=== PATIENT | male | born 1965 | race Caucasian/White ===

== ENCOUNTER 2019-09-15 15:44 | Emergency (ER) | payer MEDICARE, SELFPAY ==
--- NOTE | ~2019-09-15 | CT_ITS ---
EXAMINATION: CT abdomen pelvis w con EXAM DATE: 09/15/2019 17:08 INDICATION: Left upper quadrant pain. TECHNIQUE: Spiral CT of the abdomen and pelvis was performed following intravenous injection of 100 m L Omnipaque 350. Axial, coronal and sagittal images were reviewed. The dose-length product (DLP) fo r this examination was 1307.47 mGy-cm. The exposure was tailored according to patient size (auto mA exposure control), and iterative reconstruction (ASIR) was used as additional dose reduction techniqu e. Comparison is made to prior examination from 10/20/2006. FINDINGS: The liver, spleen, adrenal glands and pancreas are unremarkable. There are cholecystectomy clips. Portal and splenic veins are patent. Kidneys enhance symmetrically. There is no hydronephr osis. The prostate is unremarkable. The bladder is unremarkable. There is no retroperitoneal or p elvic lymphadenopathy. 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 There is mild to m oderate sigmoid colonic diverticulosis. There is no adjacent inflammatory change to suggest divertic ulitis. The stomach and small bowel are unremarkable. There is expected amount of colonic stool. N o free intraperitoneal gas. The heart is normal in size. There are no pericardial or pleural effus ions. The lung bases are unremarkable. There are no osteoblastic or osteolytic lesions identified. Posterior and interbody fusion L5-S1. Thoracic diffuse idiopathic skeletal hyperostosis. IMPRESSION: 1. No acute intra-abdominal findings. 2. Sigmoid predominant colonic diverticulosis. Reviewed, dictated and finalized at location A.
[2019-09-15 15:59] VITALS: BP 111/96; PULSE 70; RESP 18; TEMP 37.1; O2SAT 97
[2019-09-15 16:15] LABS: Basophils Absolute Auto 0.1 K/mm3 (0.0-0.1); Basophils Percent Auto 0.5 % (0.2-1.2); Eosinophils Absolute Auto 0.3 K/mm3 (0-0.3); Hematocrit 45.6 % (42.0-52.0); Hemoglobin 15.5 g/dL (14.0-18.0); Immature Granulocyte Absolute 0.07 K/mm3 (0.00-0.031); Immature Granulocyte Percent A 0.7 % (0-0.5); Lymphocytes Absolute Auto 2.09 K/mm3 (0.9-3.2); Lymphocytes Percent Auto 21.6 % (18.3-44.2); Mean Corpuscular Hemoglobin 30.4 pg (26-34); Mean Corpuscular Volume 89.4 fl (80-100); Mean Platelet Volume 10.5 fl (7.4-10.4); Monocytes Absolute Auto 0.8 K/mm3 (0.1-0.6); Monocytes Percent Auto 8.4 % (2.6-8.5); Neutrophils Absolute Auto 6.4 K/mm3 (1.3-6.7); Neutrophils Percent Auto 65.8 % (45.5-73.1); Platelet Count Result 206 k/mm3 (150-375); Red Cell Distribution Width 13.1 % (11.5-14.5); White Blood Count 9.7 K/mm3 (4.5-10.0)
[2019-09-15 16:38] LABS: Alanine Aminotransferase 18 U/L (4-50); Albumin Level 4.6 g/dL (3.5-5.1); Alkaline Phosphatase 75 U/L (38-126); Aspartate Amino Transferase 32 U/L (17-59); Bilirubin,Total 0.6 mg/dL (0.2-1.3); Blood Urea Nitrogen 12 mg/dL (9-20); Calcium 9.3 mg/dL (8.4-10.2); Carbon Dioxide 26 mmol/L (22-30); Chloride 103 mmol/L (98-107); Estimated CRCL calculation 83 ml/min; Estimated Glomerular Filt Rate > 60; Glucose 94 mg/dL (75-110); Lipase 331 U/L (23-300); Potassium 4.2 mmol/L (3.4-5.0); Sodium 136 mmol/L (137-145)
--- NOTE | 2019-09-15 17:43 | ED.ABDPAIN ---
HPI - Abdominal Pain General Chief Complaint: Abdominal Pain Stated Complaint: Abd pain, back pain Time Seen by Provider: 09/15/19 15:49 History of Present Illness HPI narrative: Patient is a 54-year-old male who presents ER with upper abdominal pain. Patient was diagnosed with mono about 1 month ago. Since then he has been feeling fatigued. Recently he has been feeling like his upper abdomen is more bloated and that on the left side he is starting to have pain from his spleen rubbing against his chest wall. He has had no fever/chills/sweats recently. He is without diarrhea or constipation. Symptoms are worse with certain types of movement and he is found no alleviating factors. Recently had a Cologuard test that was negative. Patient has mild nausea but no vomiting. Related Data Home Medications Medication Instructions Recorded Confirmed clonazepam [Klonopin] 1 mg PO TID 09/15/19 Allergies Allergy/AdvReac Type Severity Reaction Status Date / Time acetaminophen Allergy Mild Hives / Verified 09/15/19 16:11 Red Face aspirin Allergy Mild Hives / Verified 09/15/19 16:11 Red Face ibuprofen Allergy Mild Hives / Verified 09/15/19 16:11 Red Face Aminoglycosides Allergy Unknown Unknown Verified 09/15/19 16:11 Cephalosporins Allergy Unknown Unknown Verified 09/15/19 16:11 Penicillins Allergy Unknown Hives Verified 09/15/19 16:11 Quinolones Allergy Unknown Hives Verified 09/15/19 16:11 Review of Systems Review of Systems: All systems reviewed & are unremarkable except as noted in HPI and below Constitutional: Constitutional: Denies chills, Reports fatigue and Denies fever(s) ENT: Denies nasal congestion and Denies sore throat Cardiovascular: Cardiovascular: Denies chest pain and Denies radiating jaw, neck or arm pain Respiratory: Respiratory: Denies cough and Denies dyspnea Gastrointestinal: Gastrointestinal: Reports abdominal pain, Reports bloating, Denies constipation, Denies diarrhea, Reports nausea and Denies vomiting PMFSH Past Medical History Medical History (Updated 09/15/19 @ 17:52 by Sridhar Tang MD) Anxiety Asthma Hemorrhoids Surgical History Surgical History (Updated 09/15/19 @ 17:47 by Sridhar Tang MD) History of appendectomy History of back surgery History of cholecystectomy Social History Social History (Updated 09/15/19 @ 17:47 by Sridhar Tang MD) Smoking status: Never smoker Gender identity (if verbalized by the patient): Male Exam Narrative: Exam Narrative: GENERAL: Well-appearing, well-nourished, and in no acute distress. HEAD: Normocephalic, atraumatic. ENT: Mucous membranes moist. CHEST: Clear to auscultation. No respiratory distress. HEART: Regular rate and rhythm. Normal peripheral pulses. ABDOMEN: Soft, nontender, nondistended, no organomegaly. EXTREMITIES: Normal range of motion. No edema. SKIN: Warm, dry, no rash. NEURO: Alert and oriented x3. Course Course Emergency Course: Patient informed of results. Reports he discontinued his Prilosec about 5 weeks ago. Symptoms may be related to this and he has been instructed to restart the medication and follow-up with his primary care physician. Vital Signs Vital signs: Vital Signs Temperature 98.8 F 09/15/19 15:59 Pulse Rate 70 09/15/19 15:59 Respiratory Rate 18 09/15/19 15:59 Blood Pressure 111/96 H 09/15/19 15:59 Pulse Oximetry 97 09/15/19 15:59 Temperature 98.8 F 09/15/19 15:59 Pulse Rate 70 09/15/19 15:59 Respiratory Rate 18 09/15/19 15:59 Blood Pressure 111/96 H 09/15/19 15:59 Pulse Oximetry 97 09/15/19 15:59 MDM - Abdominal Pain Lab Data Result diagrams: 09/15/19 16:07 09/15/19 16:07 Labs: Lab Results 09/15/19 09/15/19 Range/Units 16:07 16:07 WBC 9.7 (4.5-10.0) K/mm3 RBC 5.10 (4.6-6.20) M/mm3 Hgb 15.5 (14.0-18.0) g/dL Hct 45.6 (42.0-52.0) % MCV 89.4 (80-100) fl MCH 30.4 (26-
[2019-09-15 18:10] VITALS: BP 132/80; PULSE 68; RESP 18; O2SAT 98
== END 2019-09-15 18:12 | disposition home or self-care (01) ==
PROVIDERS: Emergency Provider Emergency Medicine; PCP Internal Medicine
DX: R10.10 Upper abdominal pain, unspecified (principal); J45.909 Unspecified asthma, uncomplicated; K57.90 Diverticulosis of intestine, part unspecified, without perforation or abscess without bleeding
CPT/HCPCS: 36415; 74177; 80053; 83690; 85025; 99284; Q9967

== ENCOUNTER 2019-10-26 17:35 | Emergency (ER) | payer MEDICARE, SELFPAY ==
[2019-10-26 17:42] VITALS: BP 157/74; PULSE 87; RESP 18; TEMP 37.2; O2SAT 99
--- NOTE | 2019-10-26 18:15 | ED.URI ---
HPI - URI/Sore Throat General Chief Complaint: Upper Respiratory Infection Stated Complaint: Sore throat Time Seen by Provider: 10/26/19 18:02 Source: patient, RN notes reviewed and old records reviewed Mode of arrival: ambulatory Limitations: no limitations History of Present Illness HPI Narrative: Patient presents today complaining of a 3-month history of sore throat, Nasal congestion, postnasal drip. He initially had a tele-visit with his doctor, who told him he may have strep throat. He could not be tested in person due to COVID-19 and was prescribed a course of Levaquin. This did not help his symptoms. He was then prescribed a second course of antibiotics and a round of prednisone. At the beginning of August, patient tested positive for mononucleosis. Patient saw his doctor 3 days ago, where he stated his symptoms had been improving. His doctor wanted to give his symptoms another month, then refer him to ENT if they were not resolved. Patient states symptoms worsened again yesterday and he wanted to come in for evaluation. He denies cough, fever, shortness of breath, or any other additional symptoms. He does have history of allergies. He does not take an oral antihistamine, but uses a steroid nasal spray. He has not tried a decongestant for his symptoms. He stopped taking his GERD meds when he was prescribed the initial antibiotics as he read that he couldn't take antibiotics with antacids. MD elicited complaint: sore throat and nasal congestion Related Data Home Medications Medication Instructions Recorded Confirmed clonazepam [Klonopin] 1 mg PO TID 09/15/19 10/26/19 levalbuterol tartrate 2 inh INHALATION DAILY 10/26/19 10/26/19 Allergies Allergy/AdvReac Type Severity Reaction Status Date / Time acetaminophen Allergy Mild Hives / Verified 09/15/19 16:11 Red Face aspirin Allergy Mild Hives / Verified 09/15/19 16:11 Red Face ibuprofen Allergy Mild Hives / Verified 09/15/19 16:11 Red Face Aminoglycosides Allergy Unknown Unknown Verified 09/15/19 16:11 Cephalosporins Allergy Unknown Unknown Verified 09/15/19 16:11 Penicillins Allergy Unknown Hives Verified 09/15/19 16:11 Quinolones Allergy Unknown Hives Verified 09/15/19 16:11 Review of Systems Review of Systems: Narrative: CONSTITUTIONAL: Denies body aches, fever, chills, or sweats. EYES: Denies visual changes, redness, or discharge. ENT: Denies rhinorrhea, or otalgia.+Sore throat, congestion, postnasal drip CARDIOVASCULAR: Denies chest pain, palpitations, or edema. RESPIRATORY: Denies cough or dyspnea. GASTROINTESTINAL: Denies abdominal pain, nausea, vomiting, or diarrhea. GENITOURINARY: Denies dysuria or hematuria. SKIN: Denies rash, itching, or wounds. MUSCULOSKELETAL: Denies back pain, joint pain, or myalgia. NEUROLOGIC: Denies headache, numbness, tingling, or weakness. PSYCH: Denies depression or anxiety. [facility] Past Medical History Medical History (Updated 10/26/19 @ 18:18 by Kareen Garza, [facility], ) Anxiety Asthma Hemorrhoids Surgical History Surgical History (Updated 09/15/19 @ 17:47 by Sridhar Tang MD) History of appendectomy History of back surgery History of cholecystectomy Social History Social History (Updated 09/15/19 @ 17:47 by Sridhar Tang MD) Smoking status: Never smoker Gender identity (if verbalized by the patient): Male Comments At time of signature, I have reviewed and agree with nursing past medical, surgical, social and family history unless otherwise noted. Please see nursing chart for further information. There is no relevant family history pertinent to the presenting complaint Exam Narrative: Exam Narrative: GENERAL: Well-appearing, well-nourished, and in no acute distress. HEAD: Normocephalic, atraumatic. EYES: EOMI. No redness or drainage. Conjunctivae normal. ENT: Mucous membranes pink and moist. Nares clear. No rhinorrhea. TMs normal bilaterally. Throat normal. Uvula midline
== END 2019-10-26 18:23 | disposition home or self-care (01) ==
PROVIDERS: Emergency Provider Nurse Practitioner; PCP Internal Medicine
DX: J02.9 Acute pharyngitis, unspecified (principal); J45.909 Unspecified asthma, uncomplicated
CPT/HCPCS: 99211; G0463

== ENCOUNTER 2019-11-16 16:24 | Emergency (ER) | payer MEDICARE, SELFPAY ==
[2019-11-16 16:30] VITALS: BP 129/67; PULSE 76; RESP 20; TEMP 36.8; O2SAT 100
--- NOTE | 2019-11-16 16:36 | ED.URI ---
HPI - URI/Sore Throat General Chief Complaint: Upper Respiratory Infection Stated Complaint: sinus congestion Time Seen by Provider: 11/16/19 16:43 Source: patient Mode of arrival: ambulatory Limitations: clinical condition History of Present Illness HPI Narrative: Suhail Colon is a 54-year-old male with a PMH of nasal congestion and asthma who comes to express care with complaints of nasal congestion. He was seen here 3 weeks ago for complaints of a chronic sore throat and postnasal drip and started on an inhaler along with some Klonopin. Patient states that his nasal congestion has continued. He has a drug allergy profile that includes aspirin Tylenol and ibuprofen with unknown allergic response; he also claims to be allergic to penicillins and quinolones although was given a Levaquin prescription by his primary care physician and a round of prednisone prior to presentation here 3 weeks ago. He has appoint with an ENT at the end of the week but states he cannot tolerate his current nasal congestion until that time. Is afebrile-states he used breathing strips last night that helped his breathing to be able to go to sleep; shows anxiety today Patient is a non-smoker, quitting smoking in 2000 Related Data Home Medications Medication Instructions Recorded Confirmed clonazepam [Klonopin] 1 mg PO TID 09/15/19 11/16/19 levalbuterol tartrate 2 inh INHALATION DAILY 10/26/19 11/16/19 Allergies Allergy/AdvReac Type Severity Reaction Status Date / Time acetaminophen Allergy Mild Hives / Verified 11/16/19 16:46 Red Face aspirin Allergy Mild Hives / Verified 11/16/19 16:46 Red Face ibuprofen Allergy Mild Hives / Verified 11/16/19 16:46 Red Face Aminoglycosides Allergy Unknown Unknown Verified 11/16/19 16:46 Cephalosporins Allergy Unknown Unknown Verified 11/16/19 16:46 Penicillins Allergy Unknown Hives Verified 11/16/19 16:46 Quinolones Allergy Unknown Hives Verified 11/16/19 16:46 Review of Systems Review of Systems: Narrative: CONSTITUTIONAL: Denies fever, chills, sweats. EYES: Denies visual changes, redness, discharge. ENT: Minimal rhinorrhea, has nasal congestion, no sore throat, otalgia. CARDIOVASCULAR: Denies chest pain, palpitations, edema. RESPIRATORY: Denies dyspnea, wheezing, cough GASTROINTESTINAL: Denies abdominal pain, nausea, vomiting, diarrhea. GENITOURINARY: Denies dysuria, hematuria, abnormal discharge SKIN: Denies rash or itching. NEUROLOGIC: Denies numbness, or focal weakness. PSYCHIATRIC: Denies anxiety or depression. [facility] Past Medical History Medical History Anxiety Asthma Hemorrhoids Surgical History Surgical History History of appendectomy History of back surgery History of cholecystectomy Family History Family History Other No active medical problems Social History Social History Smoking status: Never smoker Gender identity (if verbalized by the patient): Male Comments At time of signature, I agree with nursing past medical, surgical, social and family history. There is no relevant family history pertinent to the presenting complaint. Exam Narrative: Exam Narrative: GENERAL: This is a well-nourished, well-developed patient, in mild distress. Appears anxious HEAD: normocephalic, atraumatic. EYES:Sclera clear/white. Vision is grossly intact. EARS: External ears normal, auditory canals clear and without drainage, TMs normal without perforation. Hearing grossly intact. NOSE: External nose normal without nasal discharge, nares with redness R>L, no rhinorrhea. Unremarkable THROAT: Mucous membranes moist, posterior pharynx pink and moist NECK: Neck supple, CARDIOVASCULAR: Regular rate with occ irregular beat, rhythm without murmurs, gallops, or rubs.
== END 2019-11-16 17:20 | disposition home or self-care (01) ==
PROVIDERS: Emergency Provider Nurse Practitioner; PCP Internal Medicine
DX: R09.81 Nasal congestion (principal); J45.909 Unspecified asthma, uncomplicated; F41.9 Anxiety disorder, unspecified
CPT/HCPCS: 99213; G0463

== ENCOUNTER → 2020-01-08 14:09 | Outpatient (CLI) | payer MEDICARE, SELFPAY ==
--- NOTE | ~2020-01-08 | MR_ITS ---
EXAMINATION: MR brain/brain stem wo/w con DATE: 01/08/2020 14:55 INDICATION: Headache. TECHNIQUE: Magnetic resonance imaging (MRI) of the brain and brainstem was performed without and with 20 mL MultiHance intravenous contrast. Sequences included sagittal and axial T1-weighted FSE, axial diffusion-weighted FS EPI, axial T2*-weighted GRE, axial T2-weighted FLAIR Propeller, and axial T2-we ighted Propeller. Postcontrast sequences included axial and coronal T1-weighted FSE. Apparent diffusi on coefficient (ADC) maps were created. COMPARISON: None. FINDINGS: There is no intracranial hemorrhage, acute infarction, or abnormal intracranial mass lesion . There are scattered areas of nonspecific increased T2-weighted signal intensity in the cerebral whi te matter, which is within normal limits for the patient's age. The ventricles are normal in size. Th e orbits are normal. The paranasal sinuses are clear. The mastoid air cells are normal. IMPRESSION: 1. Normal aging brain. Reviewed, dictated and finalized at location B. IMPRESSION: 1. Normal aging brain.
[2020-01-08 14:35] LABS: Estimated Glomerular Filt Rate > 60
== END ==
PROVIDERS: Visit Provider Internal Medicine
DX: R51 Headache (principal)
CPT/HCPCS: 70553; A9577

== ENCOUNTER 2020-03-22 00:07 | Emergency (ER) | payer MEDICARE, SELFPAY ==
--- NOTE | ~2020-03-22 | XR_ITS ---
EXAMINATION: XR chest 2V EXAM DATE: 03/22/2020 00:49 INDICATION: Chest pain for 2 weeks. TECHNIQUE: Frontal and lateral projections of the chest obtained and reviewed. Comparison is made to prior examination from 06/07/2014. FINDINGS: The lungs are clear. There are no pleural effusions. The cardiomediastinal silhouette is within normal limits. There is no pneumothorax suspected. Patient has diffuse idiopathic skeletal h yperostosis (DISH). IMPRESSION: No acute cardiopulmonary findings. Reviewed, dictated and finalized at location A. [employer]AGE SERVER
[2020-03-22 00:12] VITALS: BP 159/89; PULSE 90; RESP 18; TEMP 36.6; O2SAT 100
--- NOTE | 2020-03-22 00:16 | ECG_ITS ---
Measurements Intervals [place] Rate: 86 P: 57 [place]: 174 QRS: 3 QRSD: 100 T: 30 QT: 345 QTc: 414 Interpretive Statements SINUS RHYTHM BASELINE ARTIFACT- I, III, AVR, AVL, AVF NORMAL ECG Electronically Signed On 03-22-2020 8:46:38 [employer] SERV[employer] DEVELOPER by Remberto Portillo D.O.
--- NOTE | 2020-03-22 00:16 | ED.CHESTPAIN ---
HPI - Chest Pain General Chief Complaint: Chest Pain Stated Complaint: chest pain x2 weeks, high blood pressure Time Seen by Provider: 03/22/20 00:16 Source: patient and family Mode of arrival: ambulatory Limitations: no limitations History of Present Illness HPI narrative: Patient is a 55-year-old gentleman with a history of anxiety who presents for evaluation of chest pain. Patient was several days of chest pain over the central chest and left chest. It is worse with inspiration. Patient states pain after he took a fall off of a lawnmower. Patient was seen by his primary care physician, had a chest x-ray which he believes was normal. Patient states he did not have any lab work drawn. States he had an EKG in the office that was normal. Patient denies any associated nausea or diaphoresis today. He denies any current cough or shortness of breath. He denies any abdominal pain or ripping or tearing sensation to the flanks. Patient has a history of a stress test approximately 2 to 3 years ago per the patient and his family. Per family, patient had elevated blood pressure readings with a wrist cuff at home which is why they sought care in the emergency department. Related Data Home Medications Medication Instructions Recorded Confirmed clonazepam [Klonopin] 1 mg PO TID 09/15/19 11/16/19 levalbuterol tartrate 2 inh INHALATION DAILY 10/26/19 11/16/19 Allergies Allergy/AdvReac Type Severity Reaction Status Date / Time acetaminophen Allergy Mild Hives / Verified 11/16/19 16:46 Red Face aspirin Allergy Mild Hives / Verified 11/16/19 16:46 Red Face ibuprofen Allergy Mild Hives / Verified 11/16/19 16:46 Red Face Aminoglycosides Allergy Unknown Unknown Verified 11/16/19 16:46 Cephalosporins Allergy Unknown Unknown Verified 11/16/19 16:46 Penicillins Allergy Unknown Hives Verified 11/16/19 16:46 Quinolones Allergy Unknown Hives Verified 11/16/19 16:46 Review of Systems Review of Systems: Narrative: CONSTITUTIONAL: Denies fever, chills, or sweats. EYES: Denies visual changes, redness, or discharge. ENT: Denies rhinorrhea, congestion, sore throat, or otalgia. CARDIOVASCULAR: Reports chest pain without palpitations or edema RESPIRATORY: Denies cough or dyspnea. GASTROINTESTINAL: Denies abdominal pain, nausea, vomiting, or diarrhea. GENITOURINARY: Denies dysuria or hematuria. SKIN: Denies rash or itching. MUSCULOSKELETAL: Denies back pain, joint pain, or myalgia. NEUROLOGIC: Denies headache, numbness, or weakness. PSYCHIATRIC: Reports anxiety PMFSH Past Medical History Medical History (Updated 03/22/20 @ 02:49 by Meera Mcgraw MD) Anxiety Asthma Hemorrhoids Surgical History Surgical History History of appendectomy History of back surgery History of cholecystectomy Family History Family History Other No active medical problems Social History Social History Smoking status: Never smoker Gender identity (if verbalized by the patient): Male Exam Narrative: Exam Narrative: GENERAL: Awake, alert, conversant HEAD: Normocephalic, atraumatic. EYES: PERRLA and EOMI. ENT: Nares clear, no rhinorrhea or epistaxis. Mucous membranes moist. NECK: Supple. CHEST: No respiratory distress, breathing even and non labored, no chest wall tenderness HEART: Regular rate, sinus rhythm ABDOMEN:Non distended, non tender EXTREMITIES: Normal range of motion. No edema. SKIN: Warm, dry, no rash. NEURO:No focal deficits. Alert and oriented x3 Course Vital Signs Vital signs: Vital Signs Temperature 36.6 C 03/22/20 00:12 Pulse Rate 90 03/22/20 00:12 Respiratory Rate 18 03/22/20 00:12 Blood Pressure 159/89 H 03/22/20 00:12 Pulse Oximetry 100 03/22/20 00:12 Temperature 36.6 C 03/22/20 00:12 Pulse Rate 72 03/22/20 01:12 Respirat
[2020-03-22 00:24] LABS: Basophils Percent Auto 0.3 % (0.2-1.2); Eosinophils Absolute Auto 0.5 K/mm3 (0-0.3); Eosinophils Percent Auto 4.8 % (0-4.4); Hematocrit 42.7 % (42.0-52.0); Hemoglobin 14.8 g/dL (14.0-18.0); Immature Granulocyte Absolute 0.04 K/mm3 (0.00-0.031); Immature Granulocyte Percent A 0.4 % (0-0.5); Lymphocytes Absolute Auto 3.02 K/mm3 (0.9-3.2); Lymphocytes Percent Auto 30.1 % (18.3-44.2); Mean Corpuscular HGB Conc 34.7 g/dl (32-36); Mean Corpuscular Hemoglobin 31.6 pg (26-34); Mean Corpuscular Volume 91.2 fl (80-100); Mean Platelet Volume 10.1 fl (7.4-10.4); Monocytes Absolute Auto 1.1 K/mm3 (0.1-0.6); Monocytes Percent Auto 10.6 % (2.6-8.5); Neutrophils Absolute Auto 5.4 K/mm3 (1.3-6.7); Neutrophils Percent Auto 53.8 % (45.5-73.1); Platelet Count Result 195 k/mm3 (150-375); Red Blood Count 4.68 M/mm3 (4.6-6.20); Red Cell Distribution Width 13.2 % (11.5-14.5)
[2020-03-22 00:34] LABS: Prothrombin Time 13.4 Seconds (11.1-14.7)
[2020-03-22 00:35] LABS: Partial Thromboplastin Time 27.3 SECONDS (22.3-36.8)
[2020-03-22 00:36] LABS: Anion Gap 10 mmol/L (8-16); Blood Urea Nitrogen 16 mg/dL (9-20); Calcium 9.2 mg/dL (8.4-10.2); Carbon Dioxide 30 mmol/L (22-30); Chloride 103 mmol/L (98-107); Estimated CRCL calculation 82 ml/min; Estimated Glomerular Filt Rate > 60; Glucose 109 mg/dL (75-110); Potassium 3.4 mmol/L (3.4-5.0); Sodium 143 mmol/L (137-145)
[2020-03-22 00:48] LABS: Troponin I < 0.012 ng/mL (0.000-0.034)
[2020-03-22 00:51] VITALS: BP 132/72; PULSE 69; RESP 18; O2SAT 98
[2020-03-22 01:07] LABS: D Dimer 0.38 ug/mL (<0.48)
[2020-03-22 01:12] VITALS: BP 126/70; PULSE 72; RESP 18; O2SAT 99
[2020-03-22 02:35] LABS: Troponin I < 0.012 ng/mL (0.000-0.034)
[2020-03-22 03:04] VITALS: BP 111/54; PULSE 100; RESP 12; O2SAT 98
== END 2020-03-22 03:07 | disposition home or self-care (01) ==
PROVIDERS: Emergency Provider Emergency Medicine; PCP Internal Medicine
DX: R07.89 Other chest pain (principal); J45.909 Unspecified asthma, uncomplicated; F41.9 Anxiety disorder, unspecified
CPT/HCPCS: 36415; 71046; 80048; 84484; 85025; 85380; 85610; 85730; 93005; 99284

== ENCOUNTER 2021-08-20 22:03 | Emergency (ER) | payer MEDICARE, SELFPAY ==
[2021-08-20 22:05] VITALS: BP 160/79; PULSE 119; RESP 18; TEMP 36.6; O2SAT 99
--- NOTE | 2021-08-20 22:19 | ECG_ITS ---
Measurements Intervals [place] Rate: 97 P: 51 [place]: 181 QRS: 9 QRSD: 98 T: 30 QT: 314 QTc: 400 Interpretive Statements SINUS RHYTHM COMPARED TO ECG 03/22/2020 00:14:56 NO SIGNIFICANT CHANGES Electronically Signed On 08-21-2021 6:58:17 CDT by Edwina Thomas M.D.
[2021-08-20 22:32] LABS: Basophils Absolute Auto 0.1 K/mm3 (0.0-0.1); Basophils Percent Auto 0.5 % (0.2-1.2); Eosinophils Absolute Auto 0.7 K/mm3 (0-0.3); Eosinophils Percent Auto 5.4 % (0-4.4); Hematocrit 43.9 % (42.0-52.0); Hemoglobin 14.9 g/dL (14.0-18.0); Immature Granulocyte Absolute 0.07 K/mm3 (0.00-0.031); Immature Granulocyte Percent A 0.5 % (0-0.5); Lymphocytes Absolute Auto 3.08 K/mm3 (0.9-3.2); Lymphocytes Percent Auto 23.3 % (18.3-44.2); Mean Corpuscular HGB Conc 33.9 g/dl (32-36); Mean Corpuscular Hemoglobin 31.1 pg (26-34); Mean Corpuscular Volume 91.6 fl (80-100); Mean Platelet Volume 10.6 fl (7.4-10.4); Monocytes Absolute Auto 1.5 K/mm3 (0.1-0.6); Monocytes Percent Auto 11.3 % (2.6-8.5); Neutrophils Absolute Auto 7.8 K/mm3 (1.3-6.7); Platelet Count Result 210 k/mm3 (150-375); Red Blood Count 4.79 M/mm3 (4.6-6.20); Red Cell Distribution Width 13.5 % (11.5-14.5); White Blood Count 13.2 K/mm3 (4.5-10.0)
[2021-08-20 22:42] LABS: Alanine Aminotransferase 23 U/L (4-50); Albumin Level 4.5 g/dL (3.5-5.1); Alkaline Phosphatase 73 U/L (38-126); Anion Gap 8 mmol/L (8-16); Aspartate Amino Transferase 35 U/L (17-59); Bilirubin,Total 0.9 mg/dL (0.2-1.3); Blood Urea Nitrogen 15 mg/dL (9-20); Calcium 9.2 mg/dL (8.4-10.2); Carbon Dioxide 26 mmol/L (22-30); Chloride 102 mmol/L (98-107); Estimated CRCL calculation 70 ml/min; Estimated Glomerular Filt Rate 57; Glucose 112 mg/dL (65-110); Magnesium 1.7 mg/dL (1.6-2.3); Potassium 3.5 mmol/L (3.4-5.0); Sodium 136 mmol/L (137-145)
--- NOTE | 2021-08-20 22:47 | ED.ARRPALP ---
HPI - Arrhythmia/Palpitations General Chief Complaint: Arrhythmia/Palpitations Stated Complaint: fast HR Time Seen by Provider: 08/20/21 22:17 Source: patient History of Present Illness HPI narrative: 48-year-old male presented to emergency department for evaluation of heart palpitations during a panic attack. Patient did have a steroid eye injection yesterday and states he has had adverse reaction of anxiety in response to this injection previously. Patient states a few hours after the injection he was having a nap and was having nightmares. Patient states today he was sitting on the couch and began to feel very anxious. Patient states he fell that his heart rate was elevated. Patient did not measure his heart rate. Patient does have a history of hypertension and anxiety but states he does not take these medications as directed. He reports he has discussed this with his primary care physician and the primary care physician was encouraged him to take his Klonopin and blood pressure medication as directed. Patient states that his symptoms have improved since arrival to the ED. Patient has no longer tachycardic. Patient denies any associated chest pain or shortness of breath. Patient denies any nausea vomiting or diarrhea. Patient denies any associated eye pain or change in vision. Related Data Home Medications Medication Instructions Recorded Confirmed clonazepam [Klonopin] 1 mg PO TID 09/15/19 11/16/19 levalbuterol tartrate 2 inh INHALATION DAILY 10/26/19 11/16/19 Allergies Allergy/AdvReac Type Severity Reaction Status Date / Time acetaminophen Allergy Mild Hives / Verified 08/20/21 22:08 Red Face aspirin Allergy Mild Hives / Verified 08/20/21 22:08 Red Face ibuprofen Allergy Mild Hives / Verified 08/20/21 22:08 Red Face Aminoglycosides Allergy Unknown Unknown Verified 08/20/21 22:08 Cephalosporins Allergy Unknown Unknown Verified 08/20/21 22:08 Penicillins Allergy Unknown Hives Verified 08/20/21 22:08 Quinolones Allergy Unknown Hives Verified 08/20/21 22:08 Review of Systems Review of Systems: CONSTITUTIONAL: Denies fever, chills, or sweats. EYES: Denies visual changes, redness, or discharge. ENT: Denies rhinorrhea, congestion, sore throat, or otalgia. CARDIOVASCULAR: See HPI RESPIRATORY: Denies cough or dyspnea. GASTROINTESTINAL: Denies abdominal pain, nausea, vomiting, or diarrhea. GENITOURINARY: Denies dysuria or hematuria. SKIN: Denies rash or itching. MUSCULOSKELETAL: Denies back pain, joint pain, or myalgia. NEUROLOGIC: Denies headache, numbness, or weakness. PSYCHIATRIC: History of anxiety. All systems reviewed & are unremarkable except as noted in HPI and below PMFSH Past Medical History Medical History (Updated 08/21/21 @ 00:00 by Clinton Moon) Anxiety Asthma Hemorrhoids Surgical History Surgical History History of appendectomy History of back surgery History of cholecystectomy Family History Family History Other No active medical problems Social History Social History Smoking status: Never smoker Gender identity (if verbalized by the patient): Male Exam Narrative: APPEARANCE: Well appearing, no pain, no distress, well-nourished. HEAD: normocephalic, atraumatic. EYES: PERRLA/EOMI, no visual changes. Mild medial left conjunctival injection. NOSE: Normal no drainage NECK: Supple. No adenopathy, no masses. RESPIRATORY: Airway patent, respirations nonlabored. Clear to auscultation bilaterally, no rales, rhonchi, wheezing. CARDIOVASCULAR: Regular rate and rhythm without murmurs rubs or gallops. ABDOMINAL: Soft, nontender, nondistended, normal bowel sounds MUSCULOSKELETAL: Moves all extremities. Strength/ROM intact, No edema, No calf tenderness. NEURO: Alert. Cranial nerves II through XII intact. Grossly inta
[2021-08-20 23:39] VITALS: BP 143/83; PULSE 83; RESP 16; O2SAT 99
== END 2021-08-20 23:41 | disposition home or self-care (01) ==
PROVIDERS: Emergency Provider Emergency Medicine; PCP Internal Medicine
DX: R00.2 Palpitations (principal); F41.9 Anxiety disorder, unspecified; J45.909 Unspecified asthma, uncomplicated
CPT/HCPCS: 36415; 80053; 83735; 84443; 85025; 93005; 99283

== ENCOUNTER 2021-10-31 14:06 | Outpatient (CLI) | payer MEDICARE, SELFPAY ==
--- NOTE | ~2021-10-31 | CT_ITS ---
EXAMINATION: CT sinus wo con DATE: 10/31/2021 15:09 INDICATION: Acute sinusitis for 2 months TECHNIQUE: Computed tomography (CT) of the paranasal sinuses was performed without contrast. Iterativ e reconstruction technique was employed. Exam dose: 338.90 mGy-cm total exam DLP. COMPARISON: None FINDINGS: There is rightward deviation of the nasal septum. Bilateral nasal antral windows; nasal antral window on the left is occluded by soft tissue thickening Interlamellar cell of right middle nasal turbinate. Prominent asymmetric soft tissue swelling of the left middle and inferior nasal turbinates. There is mild mucoperiosteal thickening of the frontal sinuses. There is prominent patchy opacificati on of the ethmoid air cells bilaterally. There is severe opacification of the left maxillary sinus, with minimal residual aeration. Very small fluid level in the right maxillary sinus. The right sphenoid sinus is completely opacified. There is minimal mucoperiosteal thickening of the l eft sphenoid sinus. The mastoid air cells are normally developed and aerated. IMPRESSION: Rightward deviation of nasal septum Bilateral nasal antral windows, occluded by soft tissue thickening on the left Mild mucoperiosteal thickening of the frontal sinuses, prominent patchy opacification of the ethmoid air cells, and nearly complete opacification of left maxillary sinus, minimal mucoperiosteal thickeni ng and fluid level in the right maxillary sinus, complete opacification of right sphenoid sinus, mini mal mucoperiosteal thickening of left sphenoid sinus Reviewed, dictated and finalized at [facility]. Reviewed, dictated and finalized at location [facility]. IMPRESSION: Rightward deviation of nasal septum Bilateral nasal antral windows, occluded by soft tissue thickening on the left Mild mucoperiosteal thickening of the frontal sinuses, prominent patchy opacifi cation of the ethmoid air cells, and nearly complete opacification of left maxi llary sinus, minimal mucoperiosteal thickening and fluid level in the right max illary sinus, complete opacification of right sphenoid sinus, minimal mucoperio steal thickening of left sphenoid sinus
== END 2021-10-31 14:07 | disposition home or self-care (01) ==
PROVIDERS: PCP Internal Medicine; Visit Provider Internal Medicine
DX: J01.90 Acute sinusitis, unspecified (principal)
CPT/HCPCS: 70486

== ENCOUNTER 2024-10-20 14:23 | Outpatient (CLI) | payer MEDICARE, SELFPAY ==
--- OUTSIDE RECORDS SUMMARY | 2024-10-20 15:31 | XMS_ITS | Continuity of Care Document ---
Author Organization [facility] Address [address] [place] [address] Phone Care Team Providers Care Manager Ship Name Role Phone Florencia Cantu NP Unavailable Unavailable Medications Medication Instructions Dosage Effective Dates (start - stop) Status Comments Remeron 15 mg tablet take 1 tablet by oral route every day before bedtime 15 MG - Active Remeron 15 mg tablet take 1 tablet by oral route every day before bedtime 15 MG - No Longer Active Procedures Procedure Date Office/OutpatientVisit, Est Office/OutpatientVisit, Est Office/OutpatientVisit, Est Office/OutpatientVisit, Est Diagnostic Evaluation (with Medical) Jun Advance Directives Directive Yes / No Effective Date File Name No Information Encounters Encounter Description Practice Location Reason(s) For Visit Diagnoses Date Provider Providers Copied on Encounter Office/Outpat ientVisit, [facility], [address] [place] [address], [id number], [place] tel:[phone] [facility] No Information [address] Pepe Don. [address] [place] [address], [id number] , . tel:[phone] Referring Provider: Florencia Cantu, [address] [place] [address], [id number]. tel:[phone] Office/Outpat ientVisit, Est [facility], [address] [place] [address], [id number], tel:[phone] [facility] No Information 3 Pepe Don. [address] [place] [address], [address] [place] [address] , . tel:[phone] Office/Outpat ientVis, [facility], [address] [place] [address], [address] [place] [address], tel:[phone] [facility] No Information 3 Pepe Florencia. [address] [place] [address], [address] [place] [address] , . tel:[phone] Referring Provider: Florencia Cantu, [address] [place] [address], [id number]. tel:[phone] Office/Outpat ientVisit, [facility], [address] [place] [address], [address] [place] [address], tel:[phone] [facility] No Information 3 Pepe Don. [address] [place] [address], [address] [place] [address] , . [phone] Referring Provider: Florencia Cantu, [address] [place] [address], [id number]. tel:[phone] Diagnostic Evaluation (with Medical) [facility], [address] [place] [address], [address] [place] [address], tel:[phone] [facility] No Information 3 Pepe Don. [address] [place] [address], [address] [place] [address] , . tel:[phone] Referring Provider: Alberta Walters, [address] [place], [address]. tel:[phone] Family History Family Member Type Diagnosis Age At Onset No Information Payers Payer name Insurance type Covered republican ID Authoriza tion(s) Medicare [id number] Social History Type Description Quantity Date Captured Comments Sex Male Smoking Status No Information Chief Complaint And Reason For Visit No Information Reason For Referral Reason For Referral No Information History Of Present Illness Encounter Date Complaint History Of Prese nt Illness No Information Functional Status Date Functional Assessmen t No Information Instructions Date Instruction Additional Infor mation No Information Assessments Type Assessment Date No Information Patient Care Teams Name Effective Dates (start - stop) Status Members No Information
--- OUTSIDE RECORDS SUMMARY | 2024-10-20 15:31 | XMS_ITS | CONTINUITY OF CARE DOCUMENT ---
Author Name keri saavedra Address Unknown Organization [facility] Address [address] [place] [address] Phone [phone] Care Team Providers Care Psychometrician Name Role Phone Ran HUANG, Rylee Unavailable ARTHUR HUANG, REINA Yoder Unavailable REINA GIBSON MD Unavailable [phone] PROBLEMS Condition Status Date Provider Notes Cardiology examination active Rylee rodriguez MD back pain active Rylee Tong MD Asthma active Rylee Tong MD Elevated blood pressure active Rylee kelly MD Degenerative disc disease active Rylee qureshi MD Anxiety active Rylee Tong MD Tobacco use, quit active Rylee Tong MD Shortness of breath active Rylee Cabrera Obesity active Rylee Tong MD arthritis active Rylee Tong MD Preop cardiovasc. examination active Elodia Tong MD ENCOUNTERS Date Type Provider Location Encounter Diag nosis - In-person encounter Office Visit Rylee Tong MD [facility] Cardiology examinationback painAsthmaElevated blood pressureDegenerative disc diseaseAnxietyTobacco use, quitShortness of breathObesityarthritisPreop cardiovasc. examination VITAL SIGNS Date Observation Value Provider Body Mass Index (Ratio) 36.90 kg/m2 Roslyn Rangel blood pressure, diastolic 92 mm[Hg] [facility] mendel Snyder blood pressure, systolic 190 mm[Hg] Sanaz Snyder oxygen saturation, oximetry 98 % Marcella Snyder pulse rate 83 /min Marcella Snyder respiratory rate E&M 18 /min Marcella Cabrera lora weight E&M 257.2 [lb_av] Marcella Snyder height E&M 70 [in_i] Marcella Snyder ALLERGIES Allergy Name Onset Date Reaction Criticality Status IBUPROFEN Low Criticality active ASPIRIN High Criticality active HISTORY OF MEDICATION USE Medication Status Instructions Dates Provider Indications Com ments albuterol sulfate 90 mcg/actuation HFA aerosol inhaler active Rylee Tong MD clonazepam 1 mg tablet active Rylee Tong MD SOCIAL HISTORY Date Observation Value Provider social history E&M S moking History: Alphonse price is a former smoker. Rylee Tong MD social history reviewed E&M revi ewed - no changes required Rylee Tong MD number of years as a smoker 30 a Rylee Tong MD cigarette use yes Rylee Tong MD smoking status Former smoker Rylee kelly MD INSURANCE PROVIDERS Payer name Policy type / Coverage type [place] [employer] party ID [place] MED[place] Medicare [id number] ADVANCE DIRECTIVES Name Date DISCUSSED - NO DECISION MADE TREATMENT PLAN Date Name Performer [id number],C,H e has been following pulmonary. He contiues to wheeze. This is likely thought to be due to post nasal drip. Emilie Rangel [id number],C,P t is planned to undergo sinus surgery today. His EKG shows sinus rhythm and is otherwise unremarkable. He underwent an echo that shows normal LV size and systolic function. His EF is normal at 55%. No wall motion abnormality was noted. Mitral valve calcification. No significant valvular abnormalities. Rylee Tong MD [id number],C,H e has been following pulmonary. He contiues to wheeze. This is likely thought to be due to post nasal drip. Rylee Tong MD [id number],C,P t's blood pressure was 190/92. Upon recheck BP was 148/92. Pt is stressed today. He was reassured and advised to keep his stress levels under control. He is not on any anti-hypertensives. Labile BP is likely related to his anxious state. Rylee Tong MD [id number],C, C hronic back pain. S/p surgery x4 Rylee Tong MD [id number],C, O n clonazepam 1 mg. Follows with you. P t is stressed today after suffering with his sinus issues and being denied his surgery on the day of the procedure. Rylee Tong MD [id number],C,Weight loss a dvised Rylee Tong MD Cardiology:He has be en following pulmonary. He contiues to wheeze. This is likely thought to be due to post nasal drip. Emilie Rangel Cardiology:Pt is don nned to undergo sinus surgery today. His EKG shows sinus rhythm and is otherwise unremarkable. He underwent an echo that shows normal LV size and systolic function. His EF is normal at 55%. No wall motion abnormality was noted. Mitral valve calcification. No significant valvular abnormalities. Rylee Tong MD Cardiology:He has be en following pulmonary. He contiues to wheeze. This is likely thought to be due to post nasal drip. Rylee Tong MD Cardiology:Pt's bloo d pressure was 190/92. Upon recheck BP was 148/92. Pt is stressed today. He was reassured and advised to keep his stress levels under control. He is not on any anti-hypertensives. Labile BP is likely related to his anxious state. Rylee Tong MD Cardiology: C hronic back pain. S/p surgery x4 Rylee Tong MD Cardiology: O n clonazepam 1 mg. Follows with you. P t is stressed today after suffering with his sinus issues and being denied his surgery on the day of the procedure. Rylee Tong MD Cardiology:Weight loss advised M marine Tong MD Date Name Complete Echo Complete Echo HISTORY OF PROCEDURES Procedure Date Procedure Name Provider Procedure Notes S tatus EKG Rylee Tong MD complet ed
--- OUTSIDE RECORDS SUMMARY | 2024-10-20 15:31 | XMS_ITS | Encounter Summary ---
Author Organization [facility] Address [address] [place] [address] Care Team Providers Care Hack Driver Name Role Phone Nilton Richard MD Primary Care Provider [phone] Encounter Details Date Type Department Care Team (Late st Contact Info) Description 10/02/2024 Ophth Exam [facility] - Ophthalmology [address] [place] [id number] Az Lanier MD [address] [place] [address] Social History Tobacco Use Types Packs/Day Years Used Date Smoking Tobacco: Never Smokeless Tobacco: Never Alcohol Use Standard Drinks/Week Comments Never 0 (1 standard drink = 0.6 oz pur e alcohol) Sex and Gender Information Value Date Recorded Sex Assigned at Not on file 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
--- OUTSIDE RECORDS SUMMARY | 2024-10-20 15:31 | XMS_ITS | Clinical Summary ---
Author Organization [facility] Address [address] [place] [address] Care Team Providers Care Upholsterer Inside Name Role Phone Nilton Richard MD Primary Care Provider [phone] Source Comments [facility],non-owned Affiliates and Associated Physician Practices is amultiple site organization consisting of ambulatory clinics and hospital sitesin [place], [place], [place] and [place]. This disclosure is being madepursuant to the Care Everywhere program and may not contain all information available regarding this patient. Last updated 18.[facility] Allergies Active Allergy Reactions Criticality Noted Date Comments Aspirin Urticaria Medium 10/02/2024 Encounters Date Type Department Care Team Description 10/03/2024 Telephone [facility] - Ophthalmology [facility] [place] [phone] Lorena Perry MD Eye Problem 10/02/2024 9:12 PM CDT - 10/03/2024 12:55 AM CDT Emergency [facility] [address] [place] [phone] Sridhar Ling MD Stanley, Chad, MD Left retinal detachment (Primary Dx); Visual disturbance Discharge Disposition: Home or Self Care 10/02/2024 Ophth Exam [facility] - Ophthalmology [address] [place] [phone] Az Lanier MD 10/02/2024 Travel from Last 3 Months Social History Tobacco Use Types Packs/Day Years Used Date Smoking Tobacco: Never Smokeless Tobacco: Never Tobacco Cessation:Counseling Given: Not Answered Alcohol Use Standard Drinks/Week Comments Never 0 (1 standard drink = 0.6 oz pur e alcohol) Sex and Gender Information Value Date Recorded Sex Assigned at Not on file 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 Gender Identity Not on file Sexual Orientation Not on file Last Filed Vital Signs Vital Sign Reading Time Taken Comments Blood Pressure 181/85 10/02/2024 8:07 PM CDT Pulse 109 10/02/2024 8:07 PM CDT Temperature 36.2 C (97.1 F) 10/02/2024 8:07 PM CDT Respiratory Rate 16 10/02/2024 8:07 PM CDT Oxygen Saturation 100% 10/02/2024 8:07 PM CDT Inhaled Oxygen Concentration - - Weight 113.4 kg (250 lb) 10/02/2024 8:07 PM CDT Height 177.8 cm (5' 10) 10/02/2024 8:07 PM CDT Body Mass Index 35.87 10/02/2024 8:07 PM CDT Plan of Treatment Health Maintenance Due Date Last Done Comments COLON MONITORING 1963 COLONOSCOPY - COLON CA SCREENING 1963 CT COLONOGRAPHY - COLON CA SCREENING 1963 FIT - COLON CA SCREENING 1963 FLEX SIG - COLON CA SCREENING 1963 LIPID TESTING 1963 MEDICARE AWV 12 MONTHS 1963 HIV SCREENING 1978 HEPATITIS C SCREENING 01/12/1981 DTAP/TDAP/TD VACCINES (1 - Tdap) 1982 PNEUMOCOCCAL VACCINE 50+ (1 of 1 - PCV) 2013 ZOSTER VACCINE (1 of 2) 2013 COLOGUARD (AGES 45-75) - COL ON CA SCREENING 05/11/2022 05/11/2019 Colorectal Cancer Screening 05/11/2022 COVID-19 VACCINE ( - 2023-2 5 season) 2024 DEPRESSION SCREENING 05/14/2024 INFLUENZA VACCINE (Season Ended) 2025 Respiratory Syncytial Virus (RSV) Vaccine Pt: or over 60 yrs (1 - 1-dose 75+ series) 2038 HEPATITIS B VACCINE Aged Out No longe r eligible based on patient's age to complete this topic HIB VACCINE Aged Out No longer eligi ble based on patient's age to complete this topic HPV VACCINE Aged Out No longer eligi ble based on patient's age to complete this topic MENINGOCOCCAL (Group B) VACC INE SHARED DECISION-MAKING Aged Out No longer eligibl e based on patient's age to complete this topic MENINGOCOCCAL GROUPS A/C/Y/W VACCINE Aged Out No longer eligible b ased on patient's age to complete this topic Procedures Procedure Name Priority Date/Time Associated Diagnosis Comments BASIC METABOLIC PANEL (CALCIUM TOTAL) STAT 10/02/2024 9:52 PM CDT HEMOGLOBIN A1C CELSO 10/02/2024 9:52 PM CDT from Last 3 Months Results * (ABNORMAL) HEMOGLOBIN A1C (10/02/2024 9:52 PM CDT) Hemoglobin A1c 5.7(H) <=5.6 % 10/03/2024 10:31 AM CDT [facility] Estimated Average Glucose 117 mg/dL 10/03/2024 10:31 AM CDT [facility] Comment: HbA1c Interpretation: Normal : < 5.7% Pre-diabetes: 5.7-6.4% Diabetes: Equal to or greater than 6.5% Test results diagnostic of diabetes should be repeated for confirmation. Treatment target values recommended by ADA and other clinical organizations should be used to evaluate metabolic control in patients. Reference: [place] [employer] Association, Standards of Care in Diabetes -2020 In patients 70 years and older consider HbA1c target range of 7.0-7.5% (Reference: Bakari Gibbs et al. JAMDA. 2012) The Sebia assay for the measurement of HbA1c is a National Glycohemoglobin Standardization Program (NGSP) certified method. Blood BLOOD SPECIMEN WITH EDTA / Unknown Venipuncture / Unknown 10/02/2024 9:52 PM CDT 10/02/2024 9:57 PM CDT Sridhar Ling MD LAB - CHEMISTRY ORDERA BLES Final Result [facility] [address] [place] [address], [facility] [phone] * (ABNORMAL) BASIC METABOLIC PANEL (CALCIUM TOTAL) (10/02/2024 9:52 PM T) BUN 10 7 - 26 mg/dL 10/02/2024 10:32 PM [facility] Creatinine 1.12 0.71 - 1.16 mg/dL 10/02/2024 10:32 PM [facility] Sodium 139 136 - 145 mmol/L 10/02/2024 10:32 PM [facility] Potassium 4.0 3.5 - 4.5 mmol/L 10/02/2024 10:32 PM [facility] Chloride 104 98 - 107 mmol/L 10/02/2024 10:32 PM [facility] CO2 27 22 - 29 mmol/L 10/02/2024 10:32 PM [facility] Glucose 92 70 - 99 mg/dL 10/02/2024 10:32 PM [facility] Calcium 9.8 8.4 - 10.2 mg/dL 10/02/2024 10:32 PM [facility] Anion Gap 8 6 - 16 10/02/2024 10:32 PM [facility] BUN/Creatinine Ratio 9 7 - 23 10/02/2024 10:32 PM [facility] Osmolality Calculated 287 275 - 295 mOsm/kg 10/02/2024 10:32 PM [facility] eGFR by CKD-EPI 75(L) >=90 mL/min/1.7 3 m2 10/02/2024 10:32 PM [facility] Blood BLOOD SPECIMEN / Unknown Venipuncture / Unknown 10/02/2024 9:52 PM CDT 10/02/2024 10:02 PM [facility] Sridhar Ling MD LAB - CHEMISTRY ORDERA BLES Final Result [facility] [address] [place] [address], [facility] [phone] from Last 3 Months Insurance MEDICARE MEDICARE Care Teams Upholsterer Inside Relationship Specialty Start Date End Date Nilton Richard MD PCP - General 05/22/19
--- OUTSIDE RECORDS SUMMARY | 2024-10-20 15:31 | XMS_ITS | Referral Summary ---
Author Organization [facility] [address] Address [address] [place] [address] Care Team Providers Care General Teller Name Role Phone Ashu Castro MD Primary Care Provider [phone] Allergies Active Allergy Reactions Criticality Noted Date Comments Alprazolam Mental status changes High Reaction: CONFUSION, Aspirin Hives Medium Cefuroxime Hives Medium 04/06/2021 Cephalexin Hives Medium 04/06/2021 Morphine Other (See comments) Medium Reaction: SHAKINESS, Penicillins Hives Medium 04/06/2021 Sulfa (Sulfonamide Antibiotics) Hives Medium 04/06/2021 Medications clonazePAM (KlonoPIN) 1 mg tablet Take 1 mg by mouth 2 (two) times a day Active famotidine (PEPCID) 20 mg tablet Take 20 mg by mouth daily Active latanoprost (XALATAN) 0.005 % ophthalmic solution Administer 1 drop into both eyes daily Active albuterol HFA (PROVENTIL HFA,VENTOLIN HFA,PROAIR HFA) 90 mcg/actuation inhaler Inhale 1 puff every 8 (eight) hours as needed for wheezing Using 2 to 3 times per day Active fluticasone furoate-vilante roL (BREO ELLIPTA) 200-25 mcg/dose diskus inhaler daily Active ipratropium (ATROVENT) 42 mcg (0.06 %) nasal spray every 6 hours Acti ve levalbuterol (XOPENEX) 1.25 mg/3 mL nebulizer solution levalbuterol 1.25 mg/3 mL solution for nebulization INHALE 1 UNIT BY NEBULIZATION ROUTE EVERY 8 HOURS NEEDED Active levalbuterol (XOPENEX HFA) 45 mcg/actuation inhaler INHALE 1 PUFFS INTO LUNGS EVERY 6 HOURS NEEDED 2 Active Active Problems Problem Noted Date Diagnosed Date Hypertrophy of nasal turbinates 01/06/2022 Overview (01/06/2022): Added automatically from request for surgery [id number] PND (post-nasal drip) 12/29/2019 Chronic sinusitis 12/08/2019 Deviated nasal septum 12/08/2019 Social History Tobacco Use Types Packs/Day Years Used Date Smoking Tobacco: Former Smokeless Tobacco: Never Tobacco Cessation:Counseling Given: Not Answered Alcohol Use Standard Drinks/Week Comments Not Currently 0 (1 standard drink = 0.6 oz pur e alcohol) AUDIT-C Answer Date Recorded Q1: How often do you have a drink containing alcohol? Never 02/16/2022 Q2: How many drinks containi ng alcohol do you have on a typical day when you are drinking? Patient does not drink Q3: How often do you have si x or more drinks on one occasion? 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 Gender Identity Not on file Sexual Orientation Not on file Last Filed Vital Signs Vital Sign Reading Time Taken Comments Blood Pressure 173/91 04/29/2020 3:01 PM DEVELOPMENT ASSISTANT Pulse 70 11/15/2011 12:03 PM CDT Temperature 36.4 C (97.5 F) 04/29/2020 3:01 PM DEVELOPMENT ASSISTANT Respiratory Rate 17 11/03/2021 11:10 AM CDT Oxygen Saturation - - Inhaled Oxygen Concentration - - Weight 104.3 kg (230 lb) 02/16/2022 11:41 AM CDT Height 172.7 cm (5' 8) 02/16/2022 11:41 AM CDT Body Mass Index 34.97 02/16/2022 11:41 AM CDT Plan of Treatment Not on file Insurance MEDICARE MEDICARE MEDICARE Care Teams General Teller Relationship Specialty Start Date End Date Ashu Castro MD PCP - General Internal Medicine 12/01/19
--- OUTSIDE RECORDS SUMMARY | 2024-10-20 15:31 | XMS_ITS | Clinical Summary ---
Author Organization [facility] [address] Address [address] [place] [address] Care Team Providers Care Buckle Sorter Name Role Phone Ashu Castro MD Primary Care Provider [phone] Allergies Active Allergy Reactions Criticality Noted Date [...] (01/06/2022): Added automatically from request for surgery [id number] PND (post-nasal drip) 12/29/2019 Chronic sinusitis 12/08/2019 Deviated nasal septum 12/08/2019 Surgical History Surgery Date Site/Laterality Comments FUNCTIONAL ENDOSCOPIC SINUS SURGERY 12/14/2000 Bilateral total ethmoids, maxillary, sphenoids CHOLECYSTECTOMY BACK SURGERY APPENDECTOMY Medical History Medical History Date Comments Vertigo Chronic rhinosinusitis Allergic rhinitis Asthma Headache PONV (postoperative nausea and vomiting) N&V after back surgery 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 Obesity Family History Medical History Relation Name Comments Cancer Father Relation Name Status Comments Father Social History Tobacco Use Types Packs/Day Years [...] on file Legal 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 Gender Identity Not on file Sexual Orientation Not on file Obstetrics History Last Filed Vital Signs Vital Sign Reading Time Taken Comments Blood Pressure 173/91 04/29/2020 3:01 PM PATIENT CENTERED CARE SPECIALIST Pulse 70 11/15/2011 12:03 PM CDT Temperature 36.4 C (97.5 F) 04/29/2020 3:01 PM PATIENT CENTERED CARE SPECIALIST Respiratory Rate 17 11/03/2021 11:10 AM CDT Oxygen Saturation - - Inhaled Oxygen Concentration - - Weight 104.3 kg (230 lb) 02/16/2022 11:41 AM CDT Height 172.7 cm (5' 8) 02/16/2022 11:41 AM CDT Body Mass Index 34.97 02/16/2022 11:41 AM CDT Plan of Treatment Health Maintenance Due Date Last Done Comments Colon Cancer Screening-Colonoscopy 1963 Depression Screening 1963 Hepatitis C Screening 1963 Prostate Cancer Screening-PSA 1963 DTaP/Tdap/Td Vaccine (1 - Tdap) 1974 Hepatitis B Screening 1981 Regular Well Visit/Exam 18-64 1981 Pneumococcal vaccine <65 (1 of 2 - PCV) 1982 Zoster Vaccine (1 of 2) 2013 Influenza Vaccine (Season Ended) 2025 Insurance MEDICARE MEDICARE MEDICARE Care Teams Buckle Sorter Relationship Specialty Start Date End Date Ashu Castro MD PCP - General Internal Medicine 12/01/19
--- OUTSIDE RECORDS SUMMARY | 2024-10-20 15:31 | XMS_ITS | Continuity of Care Document ---
Author Organization [facility] Address [address] [place] [address] Phone Care Team Providers Care Etl Informatica Architect Name Role Phone Alberta Arvizu MD Unavailable Un available Allergies, Adverse Reactions, Alerts Substance Reaction Status Criticality cefdinir SLOW HEART RATE Active No Informati on aspirin HivesHives Active No Information WARNIN allergy(ies) could not be collected because the type is not supported. Please contact the source practice for further details. Medications Medication Instructions Dosage Effective Dates (start - stop) Status Comments METOPROLOL SUCC ER 50 MG TAB TAKE 1 TABLET BY MOUTH EVERY DAY - Active Klonopin 1 mg tablet TAKE 1 TABLET BY MOUTH THREE TIMES A DAY - Active latanoprost 0.005 % eye drops instill 1 drop by ophthalmic route every day into affected eye(s) in the evening 1.00 drop - Active Xopenex 0.31 mg/3 mL solution for nebulization - Active Procedures Procedure Date Office/OutpatientVisit, Est Office/OutpatientVisit, Est Office/OutpatientVisit, Est Office/OutpatientVisit, Est Office/OutpatientVisit, Est Office/OutpatientVisit, Est Office/OutpatientVisit, Est Influenza Test Molecular DNA AMP Probe J Office/OutpatientVisit, Est Office/OutpatientVisit, New Office/OutpatientVisit, New NASAL ENDOSCOPY, DX Advance Directives Directive Yes / No Effective Date File Name No Information Encounters Encounter Description Practice Location Reason(s) For Visit Diagnoses Date Provider Providers Copied on Encounter [facility], [address] [place] [address], [id number], tel:[phone] [facility] No Information 4 Edwin Pinzon. [address], [place], [id number], [place]. tel:[phone] [facility]ician [facility], [address] [place] [address], [id number], [place] tel:[phone] [facility] Family And Internal [facility] No Information 4 Edwin Pinzon. [address], [place], [id number], [place]. tel:[phone] Office/Outpa tientVisit, [facility] [place], [address] [place] [address], [id number], [place] tel:[phone] [facility] Family And Internal Medicine 1 month follow up (chief complaint) Chronic allergic rhinitis 3 Edwin Pinzon. [address], [place], [id number], [place]. tel:[phone] Office/Outpa tientVisit, [facility] [place], [address] [place] [address], [id number], [place] tel:[phone] [facility] Family And Internal Medicine 3 MONTH FOLLOW UP (chief complaint) Chronic allergic rhinitisEssentia l hypertensionBord lyndsay personality disorderInsomnia , unspecified type 3 Edwin Pinzon. [address], [place], [id number], [place]. tel:[phone] Office/Outpa tientVisit, [facility] Physician [facility], [address] [place] [address], [id number], [place] tel:[phone] [facility] Family And Internal Medicine 2 month follow up (chief complaint) Essential hypertensionFood allergyBorderlin e personality disorder 3 Edwin Pinzon. [address] [place], [place], [id number], [place]. tel:[phone] [facility], [address] [place] [address], [id number], [place] tel:[phone] [facility] Family And Internal Medicine Essential hypertension 3 Edwin Pinzon. [address], [place], [id number], [place]. tel:[phone] Office/Outpa tientVisit, [facility] Physician [facility], [address] [place] [address], [id number], [place] tel:[phone] [facility] Family And Internal Medicine DISCUSS B/p MEDS (chief complaint) Essential hypertensionObes ity (BMI 30-39.9)Adverse effect of drug, initial encounter 3 Edwin Pinzon. [address], [place], [id number], [place]. tel:[phone] Referring Provider: Alberta Walters, [address] [place], [address]. tel:[phone] Office/Outpa tientVisit, [facility] Physician [facility], [address] [place] [address], [id number], [place] tel:[phone] [facility] Family And Internal Medicine annual well visit (chief complaint) Medicare annual wellness visit, subsequentEssent ial hypertensionErec tile dysfunction, unspecified erectile dysfunction typeFormer smokerColon cancer screeningNeed for shingles vaccineBorderlin e personality disorder in adult 3 Edwin Pinzon. [address], [place], [id number], [place]. tel:[phone] [facility], [address] [place] [address], [id number], [place] tel:[phone] [facility] Family And Internal Medicine Chronic right shoulder painOther chronic pain Feb-2 3 Edwin Pinzon. [address], [place], [id number], [place]. tel:[phone] Office/Outpa tientVisit, [facility], [address] [place] [address], [id number], [place] tel:[phone] [facility] Family And Internal Medicine BP problems (chief complaint) Essential hypertensionBord lyndsay personality disorder in adultCervical radiculopathyChr onic right shoulder painOther chronic pain 3 Edwin Pinzon. [address], [place], [id number], [place]. tel:[phone] Office/Outpa tientVisit, [facility], [address] [place] [address], [id number], [place] tel:[phone] [facility] No Information 3 Garret Solano. [address] [place] [address], [facility], . tel:[phone] Referring Provider: Xiomara Kaur, [address] [place] [address], [facility]. tel:[phone] Office/Outpa tientVisit, [facility], [address] [place] [address], [id number], [place] tel:[phone] [facility] Family And Internal Medicine discuss meds (chief complaint) Mood disorderNasal polyps 3 Edwin Pinzon. [address], [place], [id number], [place]. tel:[phone] Office/Outpa tientVisit, [facility], [address] [place] [address], [id number], [place] tel:[phone] [facility] Family And Internal Medicine new patient (chief complaint) Left hip painPanic disorderMood disorder 2 Edwin Pinzon. [address], [place], [id number], [place]. tel:[phone] Office/Outpa tientVisit, [facility], [address] [place] [address], [id number], [place] tel:[phone] [facility] ENT Nasal congestion (chief complaint) Chronic pansinusitisNasa l polyp, unspecifiedDevia diandra nasal septum 2 Gary Kendrick. [address] [facility], [place], [place], [facility], [place]. tel:[phone] Family History Family Member Type Diagnosis Age At Onset Maternal grandmother Problem (finding) Father Problem (finding) Problem Family history of HEART PROB LEMS Paternal grandfather Problem (finding) Problem Family history of Cancer, un known Mother Problem TRIPLE BYPASS SURGERY Maternal grandfather Problem (finding) Paternal grandmother Problem (finding) Mother Problem Allergies Mother Problem Alive and well Mother Problem alzheimer's disease Payers Payer name Insurance type Covered republican ID Ilene noel(s) Medicare [id number] Social History Type Description Quantity Date Captured Comments Alcohol Use Details Unknown Caffeine Use Details Unknown Tobacco Use Status No Information Smoking Status No Information Sex Male Chief Complaint And Reason For Visit No Information Reason For Referral Reason For Referral No Information Plan Of Treatment Date Type Action Status Goal Colonoscopy. Due on 024 due Goal Hepatitis C screening. Due o n due Goal FIT-DNA. Due on due Goal Annual Physical Exam. Due on due Goal HIV screen. Due on 24 due Goal FIT. Due on due Goal Annual Physical Exam. Due on due Goal HIV screen. Due on 23 due Goal FIT-DNA. Due on due Goal Colonoscopy. Due on 023 due Goal Hepatitis C screening. Due o n due Goal FIT. Due on due Goal HIV screen. Due on due Goal FIT. Due on due Goal Hepatitis C screening. Due o n due Goal Annual Physical Exam. Due on due Goal FIT-DNA. Due on due Goal Colonoscopy. Due on due Goal FIT. Due on due Goal Colonoscopy. Due on due Goal Annual Physical Exam. Due on due Goal HIV screen. Due on due Goal Hepatitis C screening. Due o n due Goal FIT-DNA. Due on due Goal CT-Colonography. Due on due Goal Hepatitis C screening. Due o n due Goal FIT. Due on due Goal Annual Physical Exam. Due on due Goal FIT-DNA. Due on due Goal HIV screen. Due on due Goal Colonoscopy. Due on due Goal Colonoscopy. Due on due Goal CT-Colonography. Due on due Goal Annual Physical Exam. Due on due Goal HIV screen. Due on due Goal FIT-DNA. Due on due Goal FIT. Due on due Goal Hepatitis C screening. Due o n due Goal Annual Physical Exam. Due on due Goal FIT. Due on due Goal CT-Colonography. Due on due Goal FIT-DNA. Due on due Goal Hepatitis C screening. Due o n due Goal Colonoscopy. Due on due Goal HIV screen. Due on due Goal Colonoscopy. Due on due Goal Annual Physical Exam. Due on due Goal HIV screen. Due on due Goal Annual Physical Exam. Due on due Goal HIV screen. Due on due Goal Hep C Screening. Due on due Goal Colonoscopy. Due on due Goal Annual Physical Exam. Due on due Goal FIT-DNA (Colorec evelio CA Screening). Due on due Goal Colonoscopy. Due on due Goal HIV screen. Due on due Goal FOBT. Due on due Goal Hep C Screening. Due on due Goal Hep C Screening. Due on due Goal HIV screen. Due on due Goal Colonoscopy. Due on due Goal FIT-DNA (Colorec evelio CA Screening). Due on due Goal Annual Physical Exam. Due on due Goal FOBT. Due on due Goal FOBT. Due on due Goal HIV screen. Due on due Goal Hep C Screening. Due on due Goal Lipid panel. Due on due Goal FIT-DNA (Colorec evelio CA Screening). Due on due Goal Annual Physical Exam. Due on due Goal Colonoscopy. Due on due Referral Referred To: Darling Khan [address] [facility] Physician Office [place], [place], [id number] Ordered: Referrals: Allopathic & Osteopathic Physicians : Internal Medicine : Cardiovascular Disease. Darling Khan. Evaluate and treat Appointment date/timeframe: 11/28/2022 ordered Referral Ordered: X-Ray Cervical Spine: Complete 4 Views ordered Referral Referred To: Abdiel Burroughs MD [address], [place], [id number] Ordered: Referrals: Orthopedic Surgery. Abdiel Burroughs MD. Location: [facility]. Evaluate and treat Appointment date/timeframe: 04/13/2022 ordered Referral Ordered: X-Ray Hip Unilateral 2 Views ordered Referral Referred To: Aroldo Vega MD [address] [place], [phone] Ordered: Referrals: Surgery. Aroldo Vega MD. Location: [facility] [place]. Surgery Appointment date/timeframe: 04/12/2022 ordered Referral Ordered: CT Sinuses Or Facial Bones W/O Contrast Appointment date/timeframe: 03/24/2022 ordered Future Order: Lab Order Allergen Profile, Food-Grain ([facility]), Sent on: Sent History Of Present Illness Encounter Date Complaint History Of Prese nt Illness 1 month follow up 3 MONTH FOLLOW UP 2 month follow up DISCUSS B/p MEDS annual well visit BP problems discuss meds new patient Nasal congestion Associated symp toms include deviated septum and nasal drainage (clear). Additional information: He notes that he does use flonase without improvement. Functional Status Date Functional Assessmen t No Information Instructions Date Instruction Additional Infor mation The patient has anxi ety about starting new mediations. He has had panic attacks previously when starting new allergy medication. We discussed the patient's anxiety about taking medications and his need to treat his allergies given his history of chronic rhinitis and recurrent sinusitis. The patient has agreed to start taking a half tablet of cetirizine 10 mg daily and work his way up to a full tablet. He will also begin a daily nasal steroid. He has Flonase and cetirizine at home. He will likely require allergy treatment year-round. Talked with the patient about his allergies for 30 minutes today. Related to Chronic allergic rhinitis Refills have been se nt for Klonopin 1 mg TID. He has frequent outbursts and behavioral issues when he is tried to discontinue clonazepam in the past. He is not currently on any medications for anxiety other than clonazepam. Dialectical behavior therapy was recommended by his psychiatrist, but she cannot provide DBT. The patient has struggled to find a provider who does DBT. I will contact psychiatrist to see if we can find a provider. Related to Borderline personality disorder He has been using hi s albuterol and taking Xopenex before going to bed. He will stop doing this and begin treating his allergies. Related to Insomnia, unspecified type His blood pressure i s uncontrolled. His blood pressure was elevated in the office today at 168/72. He has had blood pressure readings as high as 180/90. The patient will begin checking his blood pressure at home. Related to Essential hypertension The patient's allerg ies are uncontrolled. He has had allergy testing previously and is allergic to a multitude of allergens, but he has not been taking medication for his allergies. His memorial counselor recommended Zyrtec and montelukast. The patient will immediately start Zyrtec and a nasal steroid. He will stop the Xopenex. His memorial counselor are worst starting in December. He will begin and antibiotic nasal rinse beginning in November 2023. Follow-up in 2 weeks. Related to Chronic allergic rhinitis Refill clonazepam. W e plan to taper this medication once patient has begin his therapy for his prior borderline personality disorder. He has frequent outbursts and behavioral issues when he is tried to discontinue clonazepam in the past. He is not currently on any medications for anxiety other than clonazepam. Related to Borderline personality disorder The patient believes the rash he develops is due to wheat. The skin test at the memorial counselor was negative for wheat. Labs have been ordered for grain allergen profile. Related to Food allergy The patient's blood pressure is within the normal ranges at 122/76 in the office today. He had stopped valsartan because he believed he was allergic to the medication. This may not have been the case and he is open to taking the medication once again. His hypertension will continue to be managed by his muffle worker. Related to Essential hypertension Patient discontinued the valsartan on his own possible that his use of valsartan has resulted in hives but patient also has a history of hives that were unprovoked by medications prior to starting the valsartan. Given the possible side effect of developing angioedema I have recommended that we discontinue this medication and all of the risks in this class at this time. Related to Adverse effect of drug, initial encounter The patient is overw [age] and has struggled to lose weight. Based on the patient's weight distribution, he carries a large amount of weight in his abdomen. There is concern for possible insulin resistance. Labs have been ordered and hemoglobin A1c to be performed. If appropriate, the patient will be prescribed a semaglutide. Related to Obesity (BMI 30-39.9) His blood pressure i n the office today is 140/82. The patient experienced had an adverse reaction to valsartan. He experienced hives and believes it is due to the valsartan. It is unclear if this is the case. The patient has had hives on and off for years. The patient will begin taking amlodipine 5 mg daily. Prescription has been sent. Related to Essential hypertension 30 minutes spent wit h the patient taking about his psychiatric issues such as borderline personality disorder, PTSD, and bipolar 2. Also discussed his intensive outpatient therapy and how he feels about it. Related to Borderline personality disorder in adult The patient is due f or shingles vaccines. He declines all vaccines. Related to Need for shingles vaccine The patient is due f or colon cancer screening. He has agreed to do Cologuard. The appropriate forms have been filled out and sent. Related to Colon cancer screening The patient is a for eliu smoker and will be due for AAA screening at age 63. Related to Former smoker The patient has had continued erectile dysfunction for several years. The patient states the vardenafil has been effective. The patient states he would like to have his testosterone levels checks. Labs have been ordered. Related to Erectile dysfunction, unspecified erectile dysfunction type The patient's blood pressure in the office today is 180/90. BP was 162/80 on recheck. The patient has not been taking valsartan. The patient will begin taking his valsartan 160 mg daily. He will also check his blood pressure at home. Related to Essential hypertension Upon completion of t he history and physical exam today, I have provided appropriate education, counseling, and referrals. I have also reviewed and discussed all the medicare paperwork and screening today. I also discussed the beneficiaries 5 year goals and plans which are included in my written and verbal instructions. Referrals today include the following: NONE Patient will have the following screenings according to recommendations by the [place]PSTF: Orders were placed for Cologuard. Orders have been made for Hemoglobin A1c and lipid panel. Immunization History: Patient declines all vaccines at this time. A complete written plan, along with the medicare checklist, was provided to the patient today. I discussed tobacco exposure, nutrition, wellness, and lifestyle changes including diet physical activity. In addition, I have answered all the patient's questions during todays visit. I will have them follow up as scheduled. They may call or return if needed. Related to Medicare annual wellness visit, subsequent See above. Related to Other chronic pain The patient has expe rienced right shoulder pain for several years but it was worsened in the past two weeks. The patient's pain is amplified by his fibromyalgia. The patient is being referred to ortho. Related to Chronic right shoulder pain The patient experien jose bilateral shooting pain in both arms. Orders have been made for x-rays of the cervical spine. Related to Cervical radiculopathy The patient has been diagnosed with borderline personality disorder but his psychiatrist. The patient has been referred to a therapist by psychiatry. Related to Borderline personality disorder in adult The patient's blood pressure is elevated in the office today at 140/80. Previous readings in the office have been as high as 152/98. The patient states his blood pressure has been elevated for years. The patient has been prescribed valsartan 160 mg daily. Related to Essential hypertension The patient is 3 wee ks post-op from having the polyps removed. After he has healed he will work with is ENT to manage his allergies. Related to Nasal polyps The patient will con tinue Klonopin 1 mg TID for now although he is at increased risk of dementia. The patient is has been on the medication for 30 years and is adamant about staying on the medication. It was explained to the patient and he understands the risks of continuing the medication. The patient has agreed to go to a psychiatrist for oversight of his medications. He has been referred to psychiatry. This is a high risk medication that requires monitoring. Patient has not made any attempts to have new up-to-date medications. His primary reference point is imipramine which is certainly not a first-line medication at this point. Related to Mood disorder Patient has a long h istory of mood disorder like symptoms and was told that he had a chemical imbalance. He was subsequently placed on Klonopin and has been on that since the s. Patient states he previously tried SSRIs and other antidepressants and this resulted in him being placed in the psych rick. Patient also has a manic response to steroids and has been unable to tolerate in the past. Concern for mood disorder as underlying cause for patient's panic and irritability. Referral placed to psychiatry as mentioned above. Related to Mood disorder The patient may cont inue Klonopin BID for panic disorder. In the future we will try to find alternatives for Klonopin given the increased chance of dementia with long-term use. The patient is being referred to psychiatry. Related to Panic disorder Orders have been don cherelle for an x-ray of the patients hip. The patient has also been prescribed tramadol 50 mg PRN to relieve pain so the patient can sleep. Continue current conservative measures including ice, TENS unit, heat. Patient will be referred to orthopedics for management of his left hip pain. Related to Left hip pain Assessments Type Assessment Date No Information Patient Care Teams Name Effective Dates (start - stop) Status Members No Information
--- OUTSIDE RECORDS SUMMARY | 2024-10-20 15:31 | XMS_ITS | Continuity of Care Document ---
Author Organization [facility] Address [address] [id number] Phone Care Team Providers Care Endless Belt Finisher Name Role Phone Abdiel Burroughs MD Unavailable Unavailable Allergies, Adverse Reactions, Alerts Substance Reaction Status Criticality ibuprofen ItchingItching Active No Informatio n Medications Medication Instructions Dosage Effective Dates (start - stop) Status Comments Valium 10 mg tablet take 1 tablet by oral route 1 hour before procedure. - Active Klonopin 1 mg tablet take 1 tablet by oral route 3 times every day 1 MG - Active XOPENEX (unknown strength) Not Available - Active LATANOPROST (unknown strength) instill 1 drop by ophthalmic route every day into affected eye(s) in the evening Not Available - Active Procedures Procedure Date OFFICE/OUTPATIENT VISIT, EST XRAY SHOULDER, MIN 2 VIEW OFFICE/OUTPATIENT VISIT, EST OFFICE/OUTPATIENT VISIT, [facility] Advance Directives Directive Yes / No Effective Date File Name No Information Encounters Encounter Description Practice Location Reason(s) For Visit Diagnoses Date Provider Providers Copied on Encounter OFFICE/OUTPA TIENT VISIT, EST [facility], [address] [place], [address], [place] tel:[phone] [facility] C-spine MRI results (chief complaint) Cervical radiculitisCervi jayce spondylosis Mar-0 3 Manjeet Meadows. [address] [place] [address], [address], [place]. [phone] Referring Provider: Alberta Flores, [address] [place], [address]. tel:[phone] OFFICE/OUTPA TIENT VISIT, [facility], [address] [place] [address], [facility], [place] tel:[phone] [facility] Right shoulder (chief complaint) Body mass index (BMI) 38.0-38.9, adultCervical radiculitis Jun- 3 Manjeet Meadows. [address] [place] [address], [facility], [place]. tel:[phone] Referring Provider: Alberta Flores, [address] [place], [address]. tel:[phone] OFFICE/OUTPA TIENT VISIT, [facility], [address] [place] [address], [facility], tel:[phone] [facility] left hip pain (chief complaint) Body mass index (BMI) 37.0-37.9, adultUnilateral primary osteoarthritis, left hip Apr- 2 Manjeet Meadows. [address] [place] [address], [facility], [place]. tel:[phone] Family History Family Member Type Diagnosis Age At Onset Nephew Problem Cardiovascular disease Father Problem Cancer, unknown type Payers Payer name Insurance type Covered alliance party ID Authoriza tion(s) Medicare [employer] Benef its Admin MB [id number] Social History Type Description Quantity Date Captured Comments Alcohol Use Details No Caffeine Use Details Unknown Tobacco Use Status Current non-smoker Smoking Status Former smoker Sex Male Chief Complaint And Reason For Visit From encounter dated '07/20/2022 10:45'. C-spine MRI results (chief complaint) Reason For Referral Reason For Referral No Information Plan Of Treatment Date Type Action Status Referral Referred To: Viraj Waldron [address] [place] [address], [phone] Ordered: Referrals: Physical Medicine and Rehabilitation. Viraj Waldron. Evaluate and treat Appointment date/timeframe: 08/24/2022 ordered Referral Ordered: MRI CERVICAL SPINE W/O DYE spine, cervical Appointment date/timeframe: 07/13/2022 ordered Referral Ordered: INJECT/ ASP MAJOR JOINT/BURSA . SHLDR, HIP, KNEE, W/OUT ULTRASOUND GUIDANCE LT hip Appointment date/timeframe: 04/28/2022 ordered History Of Present Illness Encounter Date Complaint History Of Prese nt Illness C-spine MRI results Right shoulder left hip pain Location of pain is left. Functional Status Date Functional Assessmen t No Information Instructions Date Instruction Additional Infor mation Weight loss from baseline weight Related to Body mass index [BMI] 38.0-38.9, adult Weight loss from baseline weight Related to Body mass index [BMI] 37.0-37.9, adult Assessments Type Assessment Date assessment Cervical radiculitis assessment Cervical spondylosis Patient Care Teams Name Effective Dates (start - stop) Status Members No Information
[2024-10-20 20:20] LABS: Basophils Percent Auto 0.4 % (0.2-1.2); Eosinophils Absolute Auto 0.4 K/mm3 (0-0.3); Eosinophils Percent Auto 4.4 % (0-4.4); Hematocrit 44.3 % (42.0-52.0); Immature Granulocyte Absolute 0.03 K/mm3 (0.00-0.031); Immature Granulocyte Percent A 0.4 % (0-0.5); Lymphocytes Absolute Auto 2.19 K/mm3 (0.9-3.2); Mean Corpuscular HGB Conc 33.9 g/dl (32-36); Mean Corpuscular Hemoglobin 31.3 pg (26-34); Mean Corpuscular Volume 92.5 fl (80-100); Mean Platelet Volume 11.5 fl (7.4-10.4); Monocytes Percent Auto 11.5 % (2.6-8.5); Neutrophils Absolute Auto 4.8 K/mm3 (1.3-6.7); Neutrophils Percent Auto 57.3 % (45.5-73.1); Platelet Count Result 222 k/mm3 (150-375); Red Blood Count 4.79 M/mm3 (4.6-6.20); Red Cell Distribution Width 13.1 % (11.5-14.5); White Blood Count 8.4 K/mm3 (4.5-10.0)
[2024-10-20 20:42] LABS: Creatinine Urine 73.3 mg/dL
[2024-10-20 21:17] LABS: MALB Creatinine Ratio < 8.2 mg/g (0-30); Microalbumin Urine Random < 6.0 mg/L (0-16.7)
[2024-10-20 21:17] LABS: Alanine Aminotransferase 22 U/L (6-50); Albumin Level 4.6 g/dL (3.5-5.1); Alkaline Phosphatase 62 U/L (38-126); Anion Gap 11 mmol/L (4-12); Aspartate Amino Transferase 49 U/L (17-59); Bilirubin,Total 0.6 mg/dL (0.2-1.3); Blood Urea Nitrogen 12 mg/dL (9-20); Calcium 9.9 mg/dL (8.4-10.2); Carbon Dioxide 24 mmol/L (22-30); Chloride 103 mmol/L (98-107); Cholesterol 161 mg/dL (0-200); Estimated Glomerular Filt Rate 60; Glucose 96 mg/dL (65-110); HDL Direct 32 mg/dL; Potassium 4.2 mmol/L (3.4-5.0); Sodium 138 mmol/L (137-145); Total Protein 8.2 g/dL (6.3-8.2); Triglycerides 118 mg/dL (<150)
[2024-10-20 21:21] LABS: Hemoglobin A1C 5.3 % (<5.7)
[2024-10-20 21:28] LABS: LDL Cholesterol Direct 90 mg/dL
[2024-10-20 21:48] LABS: Prostate Specific Antigen 0.8 ng/mL (< OR = 4.0)
== END 2024-10-20 14:24 | disposition home or self-care (01) ==
LOC: ANHGOSHLAB 14:23
PROVIDERS: PCP Internal Medicine; Visit Provider Clinical Nurse Specialist
DX: Z12.5 Encounter for screening for malignant neoplasm of prostate (principal); I10 Essential (primary) hypertension; F41.9 Anxiety disorder, unspecified; R03.0 Elevated blood-pressure reading, without diagnosis of hypertension; R73.01 Impaired fasting glucose; Z13.228 Encounter for screening for other metabolic disorders; Z13.220 Encounter for screening for lipoid disorders
CPT/HCPCS: 36415; 80053; 80061; 82043; 83036; 84153; 84443; 85025; G0103

== ENCOUNTER 2024-10-20 14:33 | Outpatient (CLI) | payer MEDICARE, SELFPAY ==
--- NOTE | ~2024-10-20 | XR_ITS ---
3 VIEWS LUMBAR SPINE Ordering provider: CHUCHO Mason History: . M54.16 - Radiculopathy, lumbar region . Comparison: None. FINDINGS: VERTEBRAL BODIES:Postoperative changes at the level of L5 is 1. No visible fracture or subluxation. Degenerative changes of the spine. DISK SPACES: Disc spacer at the level of L5-S1. Narrowing of the disc L3-L4. Multilevel facet joint d isease. SOFT TISSUES: Normal. IMPRESSION: No acute osseous abnormality lumbar spine. Postoperative changes. Degenerative disc disease at the level of L3-L4. Multilevel facet joint disease. Reviewed, dictated and finalized at location A.
== END 2024-10-20 14:34 | disposition home or self-care (01) ==
LOC: GOSHIMG 14:33
PROVIDERS: PCP Clinical Nurse Specialist; Visit Provider Clinical Nurse Specialist
DX: M51.369 Other intervertebral disc degeneration, lumbar region without mention of lumbar back pain or lower extremity pain (principal); M47.897 Other spondylosis, lumbosacral region
CPT/HCPCS: 72100

== ENCOUNTER 2025-01-11 14:32 | Emergency (ER) | payer MEDICARE, SELFPAY ==
[2025-01-11 14:42] VITALS: O2SAT 97
[2025-01-11 14:44] VITALS: BP 146/77; PULSE 84; RESP 16; TEMP 36.3; O2SAT 98
--- NOTE | 2025-01-11 14:44 | ED.URI ---
HPI - URI/Sore Throat General Chief Complaint: Upper Respiratory Infection Stated Complaint: Asthma Time Seen by Provider: 01/11/25 14:44 Source: patient Mode of arrival: ambulatory Limitations: no limitations History of Present Illness HPI Narrative: 59 yo M presents with c/o cough, nasal congestion with sinus pressure. Symptoms for over 1 wk. listened to lungs and states wheezing. Pt has inhaler but makes him anxious so he sprays it in the air to get some in mouth and it helps but doesn't put mouth to actual inhaler. No resp distress. Afebrile. Reports hx of chronic sinusitis. All systems reviewed and negative except as noted above. Related Data Home Medications ?Medication ?Instructions ?Recorded ?Confirmed ?Last Taken ?Type levalbuterol tartrate 45 2 inh inhalation DAILY 10/26/19 10/22/24 Unknown History mcg/actuation aerosol inhaler Allergies Allergy/AdvReac Type Severity Reaction Status Date / Time acetaminophen Allergy Mild Hives / Verified 01/11/25 14:47 Red Face aspirin Allergy Mild Hives / Verified 01/11/25 14:47 Red Face ibuprofen Allergy Mild Hives / Verified 01/11/25 14:47 Red Face Aminoglycosides Allergy Unknown Unknown Verified 01/11/25 14:47 Cephalosporins Allergy Unknown Unknown Verified 01/11/25 14:47 Penicillins Allergy Unknown Hives Verified 01/11/25 14:47 Quinolones Allergy Unknown Hives Verified 01/11/25 14:47 [facility] Past Medical History Medical History (Updated 01/11/25 @ 15:04 by Roz Cormier NP) Family history of prostate cancer in father Cataracts, both eyes Glaucoma Hemorrhoids Asthma Anxiety Surgical History Surgical History History of back surgery History of appendectomy History of cholecystectomy Family History Family History Other No active medical problems Social History Social History Smoking status: Never smoker Gender identity (if verbalized by the patient): Male Comments At time of signature, agree with nursing past medical, surgical, social and family history. There is no relevant family history pertinent to the presenting complaint. Exam Narrative: GENERAL: This is a well-nourished, well-developed patient, in no apparent distress. HEAD: normocephalic, atraumatic. EYES: PERRL. Sclera clear/white. Vision is grossly intact. EARS: External ears normal, auditory canals clear and without drainage, TMs normal without perforation. Hearing grossly intact. NOSE: External nose normal with nasal congestion, purulent nasal drainage, erythema to bilateral nares. Maxillary sinus tenderness on palpation. THROAT: Mucous membranes moist, postnasal drainage with erythema. No swelling or exudates. NECK: Neck supple, non-tender without lymphadenopathy, masses or thyromegaly. CARDIOVASCULAR: Regular rate and rhythm without murmurs, gallops, or rubs. RESPIRATORY: Coarse throughout all lung addison on expiration. Breath sounds equal bilaterally. No wheezes, rales, or rhonchi. SKIN: warm, Dry, intact with no suspicious lesions or rash, good texture and turgor. NEURO: awake, alert, and oriented to person, place and time. There were no obvious focal neurologic abnormalities. EXTREMITIES: No joint tenderness, effusion, or edema noted. Course Course Level of Care: Express Care Visit Vital Signs Vital signs: Vital Signs Pulse Oximetry 97 01/11/25 14:42 Oxygen Delivery Room Air 01/11/25 14:42 Temperature 36.3 C L 01/11/25 14:44 Pulse Rate 84 01/11/25 14:44 Respiratory Rate 16 01/11/25 14:44 Blood Pressure 146/77 H 01/11/25 14:44 Pulse Oximetry 98 01/11/25 14:44 Oxygen Delivery Room Air 01/11/25 14:42 Reviewed MDM - URI/Sore Throat MDM Narrative Medical decision making narrative: Coarse lung sounds throughout all lung addison. No respiratory distress. Patient was offered breathing treatment but he did not feel was necessary. Patient states that they makes him anxious. Was offered chest x-ray but he declined. Wants treatment for bacterial sinusitis. Will prescribe prednisone and refill Xopenex inhaler for asthma exacerbation. Patient states he will ?most likely not take prednisone because it makes anxious ?. Patient is alert, nontoxic. Differential Diagnosis Differential diagnosis: Likely upper respiratory infection, sinusitis and viral infection Discharge Plan Discharge Clinical Impression: Acute bacterial sinusitis, Asthma exacerbation Patient Disposition: Home Condition: Stable Instructions: Sinusitis (ED) Additional Instructions: Take medications as prescribed. Take Tylenol every 6-8 hours as needed for pain and fever. Follow-up with your primary care physician if not improving. Patient Language: Yoruba Prescriptions: New levalbuterol tartrate [Xopenex HFA] 45 mcg/actuation HFA aerosol inhaler 2 inh inhalation Q6H PRN (Reason: shortness of breath or wheezing) Qty: 15 0RF prednisone 20 mg tablet 40 mg PO DAILY 5 Days Qty: 10 0RF amoxicillin-pot clavulanate 875-125 mg tablet 1 tablet PO Q12H 10 Days Qty: 20 0RF No Action levalbuterol tartrate 45 mcg/actuation HFA aerosol inhaler 2 inh INHALATION DAILY pseudoephedrine HCl [Sudafed] 30 mg tablet 30 mg PO Q4-6H PRN (Reason: nasal congestion) Qty: 30 0RF Rx Instructions: DNExceed 4 doses/24h fluticasone propionate [Flonase Allergy Relief] 50 mcg/actuation spray,suspension 1 spray NASAL BID Qty: 9.9 0RF Rx Instructions: administer into each nostril clonazepam [Klonopin] 1 mg tablet 1 mg PO TID Qty: 90 1RF Follow-up/Referrals: Lior Bueno DO [Primary Care Provider, Internal Medicine] Time of Disposition: 15:05
== END 2025-01-11 15:10 | disposition home or self-care (01) ==
PROVIDERS: Emergency Provider Nurse Practitioner Family; PCP Internal Medicine
DX: J01.90 Acute sinusitis, unspecified (principal); J45.901 Unspecified asthma with (acute) exacerbation; H40.9 Unspecified glaucoma; F41.9 Anxiety disorder, unspecified; H26.9 Unspecified cataract
CPT/HCPCS: 99213; G0463

== ENCOUNTER 2025-01-20 10:19 | Outpatient (CLI) | payer MEDICARE, SELFPAY ==
--- NOTE | ~2025-01-20 | XR_ITS ---
EXAMINATION: XR chest 2V, 01/20/2025 10:27 CDT HISTORY: J Chronic obstructive pulmonary disease, cough x 1 month COMPARISON: No comparisons available. Technique: 2 views obtained. Findings: The lungs are clear, no effusion. No pneumothorax. Heart is normal size. Mediastinal and hilar contours are within normal limits. Bony thorax no acute abnormality. Impression: No acute cardiopulmonary abnormality. Reviewed, dictated and finalized at location A. Impression: No acute cardiopulmonary abnormality.
== END 2025-01-20 10:20 | disposition home or self-care (01) ==
PROVIDERS: PCP Clinical Nurse Specialist; Visit Provider Clinical Nurse Specialist
DX: J44.9 Chronic obstructive pulmonary disease, unspecified (principal); J45.901 Unspecified asthma with (acute) exacerbation; R06.02 Shortness of breath
CPT/HCPCS: 71046

== ENCOUNTER 2025-03-07 16:02 | Emergency (ER) | payer MEDICARE, SELFPAY ==
--- NOTE | 2025-03-07 16:09 | ED_ITS ---
HPI - General Adult General Chief complaint: Upper Respiratory Infection Stated complaint: sinus, body hurts Time Seen by Provider: 03/07/25 16:11 Source: patient Mode of arrival: ambulatory Limitations: no limitations History of Present Illness HPI narrative: 60-year-old male patient presents to the [facility] with complaints of cold symptoms that started about 3 days ago. Patient states he has been feeling kind of fatigue with some body aches but denies fevers that he is aware of. Patient states he went saw an engineering lab technician on Sunday but states he was not feeling like this. Patient states he does have chronic allergies but denies taking anything daily for allergies. Patient states he has had a headache, congestion, runny nose and cough. Patient does have history of asthma and states he is on a a rosanna ly inhaler for his asthma. Related Data Home Medications ?Medication ?Instructions ?Recorded ?Confirmed ?Last Taken ?Type prednisone 03/07/25 Unknown History Allergies Allergy/AdvReac Type Severity Reaction Status Date / Time acetaminophen Allergy Mild Hives / Verified 01/27/25 13:39 Red Face aspirin Allergy Mild Hives / Verified 01/27/25 13:39 Red Face ibuprofen Allergy Mild Hives / Verified 01/27/25 13:39 Red Face Aminoglycosides Allergy Unknown Unknown Verified 01/27/25 13:39 Cephalosporins Allergy Unknown Unknown Verified 01/27/25 13:39 Penicillins Allergy Unknown Hives Verified 01/27/25 13:39 Quinolones Allergy Unknown Hives Verified 01/27/25 13:39 Review of Systems Review of Systems: CONSTITUTIONAL: Denies fever, chills, or sweats. positive fatigue EYES: Denies visual changes, redness, or discharge. ENT: positive rhinorrhea, congestion, sore throat, denies otalgia. CARDIOVASCULAR: Denies chest pain, palpitations, or edema. RESPIRATORY: Positive cough or dyspnea. GASTROINTESTINAL: Denies abdominal pain, nausea, vomiting, or diarrhea. GENITOURINARY: Denies dysuria or hematuria. SKIN: Denies rash or itching. MUSCULOSKELETAL: Denies back pain, joint pain, or myalgia. NEUROLOGIC: positive headache, denies numbness, or weakness. PSYCHIATRIC: Denies anxiety or depression. [facility] Past Medical History Medical History Family history of prostate cancer in father Cataracts, both eyes Glaucoma Hemorrhoids Asthma Anxiety Surgical History Surgical History History of back surgery History of appendectomy History of cholecystectomy Family History Family History Other No active medical problems Social History Social History Smoking status: Never smoker Gender identity (if verbalized by the patient): Male Comments At the time of my signature I agree with nursing past medical history, surgical, social, and family history. There is no relevant family history pertinent to the presenting complaint. Exam Narrative: GENERAL: Well-appearing, well-nourished, and in no acute distress. HEAD: Normocephalic, atraumatic. EYES: PERRLA and EOMI. ENT: Nares with erythema edema noted bilaterally, no rhinorrhea or epistaxis. Mucous membranes moist. posterior pharynx with white patches noted to the left tonsil. Mild redness. NECK: Supple. No lymphadenopathy CHEST: Patient has wheezing inspiratory and expiratory noted to bilateral lower lobes on auscultation. No respiratory distress. HEART: Regular rate and rhythm. No murmur heard. Normal peripheral pulses. ABDOMEN: Soft, nontender, nondistended, normal active bowel sounds. EXTREMITIES: Normal range of motion. No edema. SKIN: Warm, dry, no rash. NEURO: No focal deficits. Alert and oriented x3. Course Course Level of Care: Express Care Visit Reevaluation(s) Reevaluation #1: re-evaluated patient after neb treatment had been completed. Patient states he is feeling much better feels like he is breathing easier. Lung sounds are clear to bilateral upper lower lobes after neb treatment. Discussed with him that his point of care testing for COVID and flu and strep were all negative today. Patient verbalized understanding. Discussed with patient that we will discharge him home with an albuterol inhaler, oral steroids and highly recommend that he take a daily antihistamine that helped will help prevent further worsening asthma exacerbations. Patient verbalized understanding denies any other questions or concerns at this time. Date: 03/07/25 Time: 17:11 Vital Signs Vital signs: Vital Signs Temperature 36.7 C 03/07/25 16:17 Pulse Rate 66 10/25/25 16:17 Respiratory Rate 16 03/07/25 16:17 Blood Pressure 119/67 03/07/25 16:17 Pulse Oximetry 99 03/07/25 16:17 Oxygen Delivery Room Air 03/07/25 16:17 Temperature 36.7 C 03/07/25 16:17 Pulse Rate 66 03/07/25 16:17 Respiratory Rate 16 03/07/25 16:17 Blood Pressure 119/67 03/07/25 16:17 Pulse Oximetry 99 03/07/25 16:17 Oxygen Delivery Room Air 03/07/25 16:53 vital signs reviewed. Medical Decision Making MDM Narrative Medical decision making narrative: Plan of care for patient is to swab him today for flu, strep and COVID. We will also provide him a breathing treatment in the clinic today since he does have some wheezing with the chronic cough. I will reassess patient once this has resulted. Differential Diagnosis Differential Diagnosis: Differential diagnosis: Allergic rhinitis, chronic sinusitis, tonsillitis, acute sinusitis, infectious mononucleosis, seasonal influenza, pertussis, diphtheria, meningococcal disease, viral syndrome, viral bronchitis, RSV, COVID- 19 Vital Signs Vital Signs: Vital Signs Temperature 36.7 C 03/07/25 16:17 Pulse Rate 66 03/07/25 16:17 Respiratory Rate 16 03/07/25 16:17 Blood Pressure 119/67 03/07/25 16:17 Pulse Oximetry 99 03/07/25 16:17 Oxygen Delivery Room Air 03/07/25 16:17 Temperature 36.7 C 03/07/25 16:17 Pulse Rate 66 03/07/25 16:17 Respiratory Rate 16 03/07/25 16:17 Blood Pressure 119/67 03/07/25 16:17 Pulse Oximetry 99 03/07/25 16:17 Oxygen Delivery Room Air 03/07/25 16:53 Lab Data Labs: Lab Results 03/07/25 03/07/25 Range/Units 16:48 16:49 POC Influenza A Ag Negative (Negative) POC Influenza B Ag Negative (Negative) POC SARS CoV-2 Ag Negative (Negative) POC Grp A Strep Screen Negative (Negative) Critical Care Time Critical Care Time Critical Care Time: No Discharge Plan Discharge Clinical Impression: Viral URI, Asthma exacerbation Patient Disposition: Home Condition: Stable Instructions: Antibiotic Form, Viral Syndrome (ED) Additional Instructions: Viral illness may last between 7-12days; antibiotic is NOT recommended at this time. Recommend antihistamine such as Benadryl at night time and Claritin/Zyrtec/Beverly during the day Cough syrup may cause drowsiness; avoid driving or take it at night time. Use inhaler as needed for cough, wheezing, shortness of breath or chest tightness. Also, recommend symptomatic treatment includes: rest, fluids, and increase humidity of the air at home. Recommend Acetaminophen or nonsteroidal anti-inflammatory agents (NSAIDs) as directed in the bottle to reduce fever and/pain/headache. Avoid smoking/second-hand smoke. Limit visits to areas with large crowds. Please schedule a follow-up visit with your personal physician for further evaluation and treatment within 3-5days. Including recheck and discussion of your blood pressure. If your symptoms persist, change or worsen significantly before you can contact your personal physician then please, without delay, go to the emergency department for further evaluation. Patient Language: Korean Prescriptions: New prednisone 20 mg tablet 40 mg PO DAILY 5 Days Qty: 10 0RF albuterol sulfate [Ventolin HFA] 90 mcg/actuation HFA aerosol inhaler 2 puff INHALATION .Q4 hours PRN (Reason: cough) Qty: 18 0RF No Action prednisone levalbuterol tartrate [Xopenex HFA] 45 mcg/actuation HFA aerosol inhaler 2 inh inhalation Q6H PRN (Reason: shortness of breath or wheezing) Qty: 15 0RF Qvar RediHaler 80 mcg/actuation HFA aerosol breath activated 1 inh inhalation Q12H Qty: 10.6 0RF Follow-up/Referrals: Lior Bueno DO [Primary Care Provider, Internal Medicine] Time of Disposition: 17:11
[2025-03-07 16:17] VITALS: BP 119/67; PULSE 66; RESP 16; TEMP 36.7; O2SAT 99
[2025-03-07] MEDS: IPRATROPIUM 0.5 MG/ALBUTEROL SULFATE 2.5 MG (BASE) AMPUL.NEB 3 ML INHALATION (16:42)
[2025-03-07 16:50] LABS: EDCOVIDSCREEN Negative (Negative); EDINFLUASCREEN Negative (Negative); EDINFLUBSCREEN Negative (Negative)
[2025-03-07 16:50] LABS: EDSTREPNEGPOS1 Negative (Negative)
--- NOTE | 2025-03-07 17:01 | PC.NURSE ---
Tolerated breathing treatment well. Post treatment patient heart rate 76 and sats 96%.
== END 2025-03-07 17:22 | disposition home or self-care (01) ==
PROVIDERS: Emergency Provider Nurse Practitioner Family; PCP Internal Medicine
DX: J06.9 Acute upper respiratory infection, unspecified (principal); J45.901 Unspecified asthma with (acute) exacerbation; Z20.822 Contact with and (suspected) exposure to COVID-19; H40.9 Unspecified glaucoma; H26.9 Unspecified cataract
CPT/HCPCS: 87081; 87426; 87804; 87880; 99213; G0463